=== PATIENT | male | born 1935 | race Caucasian/White ===

== ENCOUNTER 2017-12-01 16:09 | Observation (INO) | payer OTHER, MEDICARE ==
[~2017-12-01] VITALS: Ht 162.6 cm; Wt 77.1 kg
[~2017-12-01 16:09] MED LIST: ASPIRIN EC81 M1 PO; BENADRYL ALLERG25 M2 PO; BENICAR20 M1 PO; CO Q-10200 MG PO; COUMADIN2.5 M1 PO; DOCUSATE SODIU100 M3 PO; IRON SUPPLEMEN325 MG PO; LEVOTHYROXINE100 MC1 PO; MIRALAX119 GM PO; OMEGA-31000 M1 PO; PERCOCET 5-3251 EACH PO; SENNA PLUS TAB1 EACH PO; VITAMIN D32000 UNIT PO; ZOCOR40 M1 PO
[2017-12-01 17:04] LABS: ABSOLUTE BASOPHIL COUNT 0 /CUMM (0.0-0.2); ABSOLUTE EOSINOPHIL COUNT 0 /CUMM (0.0-0.7); ABSOLUTE GRANULOCYTE CT 14.7 /CUMM (1.4-6.5); ABSOLUTE MONOCYTE COUNT 1.1 /CUMM (0.10-0.60); BASOPHIL % 0.1 % (0.0-2.0); EOSINOPHIL % 0.2 % (0-5); GRANULOCYTE % 87.4 % (42.2-75.2); HEMATOCRIT 31.7 % (42-52); MEAN CORPUSCULAR HGB 29.6 PG (27.0-31.0); MEAN CORPUSCULAR HGB CONC 33.6 G/DL (33.0-37.0); MEAN CORPUSCULAR VOLUME 88.2 FL (80.0-94.0); MEAN PLATELET VOLUME 8.2 FL (7.4-10.4); PLATELET COUNT 305 /CUMM (130-400); RBC DISTRIBUTION WIDTH 13.7 % (11.5-14.5); RED BLOOD CELL CT 3.59 /CUMM (4.70-6.10); WHITE BLOOD CELL COUNT 16.9 /CUMM (4.8-10.8)
--- NOTE | 2017-12-01 18:20 | CT SCAN REPORT ---
EXAMINATION: CT ABDOMEN AND PELVIS WITHOUT CONTRAST CLINICAL INFORMATION: Periumbilical abdominal pain and anorexia. COMPARISON: Abdominal CT favored 2014. TECHNIQUE: Multidetector volumetric imaging was performed from the superior aspect of the liver through the pubic symphysis. Sagittal and coronal reformatted images were obtained on the technologist's workstation. FINDINGS: The lung bases are clear. There is stranding between the pancreatic head and second and third portions of the duodenum that may reflect pancreatitis or duodenitis which can be correlated with serum amylase/lipase. No drainable fluid collections and no free air. There are a few punctate calcifications throughout the pancreas. The spleen is atrophic. Unenhanced liver and gallbladder are unremarkable. The adrenal glands are unremarkable. There is nonspecific perinephric stranding bilaterally. There is a left renal cyst. No hydronephrosis. Extensive aortoiliac atherosclerotic calcification. There is no bowel obstruction. Appendix not definitively identified. The bladder is decompressed, appears partially thick-walled, and there is adjacent stranding. Recommend correlation with urinalysis to exclude infection. Alternatively this may be posttreatment related given the presence of prostatic therapy seeds. No pelvic adenopathy. No free fluid within the pelvis. There are no acute osseous abnormalities. Grade 1 degenerative anterolisthesis in the setting of advanced hypertrophic facet arthropathy at L4-L5. Additional multilevel lumbar spondylosis. Right hip prosthesis. Hypertrophic degenerative changes involving the SI joints bilaterally. Fat-containing left inguinal hernia. IMPRESSION: - There is stranding between the pancreatic head and second and third portions of the duodenum that may reflect pancreatitis or duodenitis which can be correlated with serum amylase/lipase. No drainable fluid collections and no free air. - The bladder is decompressed, appears partially thick-walled, and there is adjacent stranding. Recommend correlation with urinalysis to exclude infection. Alternatively this may be posttreatment related given the presence of prostatic therapy seeds.
--- NOTE | 2017-12-01 18:51 | ED GENERAL ADULT ---
History of Present Illness General Chief Complaint: General Adult Stated Complaint: PT WAS SIB DR JOHNSON Source: patient Exam Limitations: no limitations Vital Signs & Intake/Output Vital Signs & Intake/Output Vital Signs Date Time Temp Pulse Resp B/P B/P Pulse O2 O2 Flow FiO2 Mean Ox Delivery Rate 12/01 1751 98 Room Air 12/01 1750 97.1 96 18 122/57 99 Room Air 12/01 1709 97.8 68 20 144/67 96 Room Air 12/01 1616 97.7 98 16 100/63 96 Room Air Allergies Coded Allergies: NO KNOWN ALLERGIES (07/21/15) Triage Note: STARTED W A COUGH MONDAY, NOW ON MEDS AND HAS LESSER APPETITE WITH WEIGHT LOSS OF 6 POUNDS. INTERMITTENTLY DIZZY. REPORTS RIGHT SIDED MID- ABD PAIN WORSE WITH PALPATION 6/10 AND INTERMITTENT. LAST BM YESTERDAY AND NORMAL, DENIES BLACK OR BLOODY STOOLS. DENIES HEADACHE/BLURRED VISION OR CP/SOB/PALP. DENIES CHANGE IN SIZE OF ABDOMEN. AFEBRILE Triage Nurses Notes Reviewed? yes HPI: 82-year-old male with past medical history of hypertension, hyperlipidemia, status post thyroidectomy for thyroid cancer, vitamin D deficiency, history of hyperkalemia, chronic kidney disease presenting with increased fatigue and intermittent abdominal pain for 4 days. Patient states he went to his primary care physician on Monday for a cough and a chest x-ray was done showing possible pneumonia. Patient was started on Levaquin for 7 days and is currently taking it. He states his symptoms of cough and wheezing have improved although he started having intermittent abdominal pain, decreased appetite, and 6 pound weight loss in the last 4 days. He also reports intermittent dizziness. He states he is also experiencing fatigue noted when he has to rest after walking from one room of the house into another. He went back to his PCP this morning and was advised to come to ED for further workup. He denies any fevers, chills, chest pain, shortness of breath, diarrhea, urinary tract symptoms. Of Note: patient performs intermittent cath for 25 years three times a day. He reports decreased volumes for the past few days. (Christofer ZAMUDIO,Jackeline) Reconcile Medications Amlodipine Besylate 5 MG TABLET 1 TAB PO DAILY BP (Reported) Aspirin (Ecotrin*) 81 MG TABLET. 1 TAB PO DAILY HEART/BLOOD (Reported) Cholecalciferol (Vitamin D3) (Vitamin D3) 2,000 UNIT CAPSULE 1 CAP PO DAILY SUPPLEMENT (Reported) Levothyroxine Sodium 100 MCG TABLET 1 TAB PO DAILY THYROID (Reported) Losartan Potassium (Cozaar) 25 MG TABLET 1 TAB PO DAILY BP (Reported) Westland-3 Fatty Acids (Westland-3) (Unknown Strength) CAPSULE 2 CAP PO DAILY SUPPLEMENT (Reported) Omeprazole 40 MG CAPSULE.DR 1 CAP PO BID ACID REFLUX Rosuvastatin Calcium (Crestor) 20 MG TABLET 1 TAB PO DAILY CHOLESTEROL ( Reported) Ubidecarenone (Co Q-10) 200 MG CAPSULE 1 CAP PO DAILY SUPPLEMENT (Reported) (Marie ZAMUDIO,[facility]) Past History Travel History Traveled to [place] past 21 day No Medical History Any Pertinent Medical History? see below for history Neurological: NONE EENT: NONE Cardiovascular: hypertension, hyperlipidemia Respiratory: COPD, emphysema Gastrointestinal: NONE Hepatic: NONE Renal: SEES "YUMIKO" Musculoskeletal: degen joint disease Psychiatric: NONE Endocrine: NONE Blood Disorders: NONE Cancer(s): prostate cancer TIE IN HAND/Reproductive: STRAIGHT CATH 3 XDAY History of MRSA: No History of VRE: No History of CDIFF: No Surgical History Surgical History: appendectomy Psychosocial History Where do you live Home Who do you live with Family Services at Home None What is your primary language Montenegrin Tobacco Use: Quit >30 days ago ETOH Use: occasional use Illicit Drug Use: denies illicit drug use Family History Family History, If Any: Relation not specified for: FH: cancer Hx Contributory? No (Jackeline Beaulieu MD) Review of Systems Review of Systems Constitutional: Reports: weakness, unexplained weight loss. Denies: chills, diaphoresis, fever, malaise. EENTM: Reports: no symptoms. Respiratory: Reports: cough. Denies: hemoptysis, short of breath, sputum production. Cardiovascular: Reports: no symptoms. GI: Reports: abdominal pain. Denies: bloating, constipation, diarrhea, distention, melena, nausea, changes in stool, vomiting. Genitourinary: Reports: no symptoms. Musculoskeletal: Reports: no symptoms. Skin: Reports: no symptoms. Neurological/Psychological: Reports: no symptoms. (Jackeline Beaulieu MD) Physical Exam Physical Exam General Appearance: well developed/nourished, no apparent distress, alert, awake , comfortable Head: atraumatic, normal appearance Ears, Nose, Throat: sublingual yellowing Neck: normal inspection, supple Respiratory: coarse breath sounds scattered Cardiovascular: regular rate/rhythm Peripheral Pulses: 2+ radial (R), 2+ radial (L) Gastrointestinal: soft, tenderness (RUQ) Extremities: normal inspection Core Measures ACS in differential dx? No CVA/TIA Diagnosis: No Sepsis Present: Yes Sepsis Focused Exam Completed? Yes (Christofer ZAMUDIO,Jackeline) Progress Differential Diagnoses I considered the following diagnoses in my evaluation of the patient: [UTI, gastroenteritis, PNA, dehydration, acute on chronic kidney disease, sepsis] 82 year old male currently being treated for bronchitis vs PNA by PCP with Levaquin day 5/ presenting with worsening abdominal pain for 4 days. ED work up shows: Leukocytosis (WBC 16.9) Hyponatremia (132) Acute on Chronic Kidney Disease (Cr 4.0 previous 2.0) Dehydration (BUN/Cr 74/4.0) UTI (UA +WBC, leuk esterace) Possible Sepsis of Urologic Origin -BC x 2 -IV NS 1L bolus (will only administer this one liter given patient's age and recent CXR showing atelectasis; do not want to overwhelm his system with fluid. Lactate is normal at presentation) -One dose Ceftriaxone -Placement on General Medicine for observation -Contact Dr. Jules in AM regarding kidney issues -Follow up [facility] Plan of Care: Orders Procedure Date/time Status Heart Healthy Diet 12/02 B Active TROPONIN LEVEL 12/02 0600 Active PHOSPHORUS 12/02 0600 Active MAGNESIUM 12/02 0600 Active CBC WITHOUT DIFFERENTIAL 12/02 0600 Active BASIC ELECTROLYTES PLUS BUN&CR 12/02 0600 Active LACTIC ACID 12/01 1914 Active Pathway - chart 12/01 1904 Active LOWER RESPIRATORY CULTURE 12/01 1904 Active LACTIC ACID 12/[address] in observation 12/01 1858 Active ED Holding Orders 12/01 1858 Active Vital Signs 12/01 1858 Active Code Status 12/01 1858 Active BLOOD CULTURE 12/01 1806 Active CULTURE,URINE 12/01 1804 Active URINALYSIS 12/01 1615 Complete TROPONIN LEVEL 12/01 1614 Complete LIPASE 12/01 1614 Complete LACTIC ACID 12/01 1614 Complete COMPREHENSIVE METABOLIC PANEL 12/01 1614 Complete CBC WITHOUT DIFFERENTIAL 12/01 1614 Complete EKG 12/01 1614 Active VTE Mechanical Prophylaxis 12/01 UNK Active Vital Signs 12/01 UNK Active Intake & Output 12/01 UNK Active Current Medications Sig/Angel Start time Last Medication Dose Stop Time Status Admin Acetaminophen 1,000 MG Q6P PRN 12/01 1914 [facility] ([facility]) Laboratory Tests 12/01/17 1850: Lactic Acid Pending 12/01/17 1650: Anion Gap 14, Estimated GFR 14 L, BUN/Creatinine Ratio 18.5, Glucose 166 H, Lactic Acid 1.6, Calcium 9.3, Total Bilirubin 0.3, AST 25, ALT 22, Alkaline Phosphatase 51, Troponin I < 0.01, Total Protein 6.7, Albumin 3.8, Globulin 2.9, Albumin/Globulin Ratio 1.3, Lipase 345 H, CBC w Diff MAN DIFF ORDERED, RBC 3.59 L, MCV 88.2, MCH 29.6, MCHC 33.6, RDW 13.7, MPV 8.2, Gran % 87.4 H, Lymphocytes % 5.8 L, Monocytes % 6.5, Eosinophils % 0.2, Basophils % 0.1, Absolute Granulocytes 14.7 H, Segmented Neutrophils 88 H, Absolute Lymphocytes 1.0 L, Lymphocytes 6 L, Monocytes 6, Absolute Monocytes 1.1 H, Absolute Eosinophils 0, Absolute Basophils 0, Platelet Estimate ADEQUATE, Hypochromic- Microcytic 1+ 12/01/17 1644: Urinalysis MOD H, Urine Color YEL, Urine Clarity HAZY H, Urine pH 6.0, Ur Specific [place] 1.025, Urine Protein 100 H, Urine Ketones NEG, Urine Nitrite NEG, Urine Bilirubin NEG, Urine Urobilinogen 0.2, Ur Leukocyte Esterase SMALL H , Ur Microscopic SEDIMENT EXAMINED, Urine RBC 3-5, Urine WBC 25-50 H, Ur Epithelial Cells FEW, Urine Bacteria FEW H, Hyaline Casts 15-25 H, Granular Casts 3-5 H, Urine Hemoglobin SMALL H, Urine Glucose NEG Microbiology 12/02 1903 LOWER RESP: Respiratory Culture - ORD 12/02 1903 LOWER RESP: Gram Stain - ORD 12/01 185 BLOOD: Blood Culture - RECD 12/01 1824 BLOOD: Blood Culture - RECD 12/02 1803 URINE ROUT: Urine Culture - ORD Initial ED EKG: normal axis, none, normal intervals, normal p-waves, normal QRS complex, normal sinus rhythm (Jackeline Beaulieu MD) Differential Diagnoses I considered the following diagnoses in my evaluation of the patient: Comments: 12/01/171850 82-year-old male presents with abdominal pain. The patient was recently on antibiotics for bronchitis. The patient has had progressive abdominal pain. Abdominal exam shows right lower quadrant and right upper quadrant tenderness without peritoneal signs. The patient's workup shows UTI with worsening acute on chronic renal failure. Concern for sepsis. The patient will be started on IV antibiotics, fluids and admitted. The patient is not in severe sepsis, given his age we will not give him excessive amount of fluids because be risk CHF. The patient will be given 1 L of normal saline and then started on a drip. The patient has normal lactate, normal blood pressure. EKG: Sinus, rate of 89, normal axis, normal intervals, no acute ST-T changes. Compared to the EKG from May 14, 2009: No significant change. (Wan Salazar MD) Departure Departure Condition: Stable Referrals: Jeremy ZAMUDIO,Raj De Leon (PCP/Family) Departure Forms: Customer Survey General Discharge Information (Jackeline Beaulieu MD) Departure Time of Disposition: 1851 Disposition: STILL A PATIENT Clinical Impression Primary Impression: Sepsis Secondary Impressions: UTI (urinary tract infection) Admission Note Spoke With: Brendan Banda MD Documentation of Exam: Documentation of any treatments & extenuating circumstances including Concerns Regarding Discharge (functional status, medication knowledge or non-compliance, living conditions, etc.) that warrant an admission rather than observation: The patient will need fluids, IV antibiotics, possible nephrology consult, monitoring for CHF Psych Admission Note Psychiatric Admission: I have seen and evaluated JAYA GARCIA. I have also reviewed all the pertinent lab results and diagnostic results. JAYA GARCIA will be admitted to our inpatient Psychiatric unit for treatment and care. PA/CHRISTMAS TREE GROWER Co-Sign Statement Statement: ED Attending supervision documentation- [] I saw and evaluated the patient. I have also reviewed all the pertinent lab results and diagnostic results. I agree with the findings and the plan of care as documented in the PA's/CHRISTMAS TREE GROWER's documentation. [x] I have reviewed the ED Record and agree with the PA's/CHRISTMAS TREE GROWER's documentation. [] Additions or exceptions (if any) to the PAs/CHRISTMAS TREE GROWER's note and plan are summarized below: [] (Wan Salazar MD) Critical Care Note Critical Care Note Critical Care Time: non-applicable (Christofer ZAMUDIO,Jackeline)
[2017-12-01] MEDS ORDERED: AMLODIPINE BESYL5 M1 PO (19:01)
[2017-12-01] MEDS ORDERED: CRESTOR20 M2 PO (19:02)
[2017-12-01] MEDS ORDERED: COZAAR25 M1 PO (19:02)
--- NOTE | 2017-12-01 19:02 | History & Physical ---
Baldo ZAMUDIO,Lety 12/01/17 1900: General Information and HPI Statement: I have seen and personally examined JAYA GARCIA and documented this H&P. The patient is a 82 year old M who presented with a patient stated chief complaint of []. Source of Information: patient, old records, EMS Exam Limitations: no limitations History of Present Illness: Patient is 82-year-old male with past mental history significant for prostate cancer, CKD, neurogenic bladder on self straight cath 3 times a day, trabeculated bladder, hypertension, hyperlipidemia, COPD, emphysema, DJD s/p hip arthroplasty presented to [place] after being sent by Dr. Luna for progressive worsening of right-sided abdominal pain. Patient did have pneumonia last week and has been kept on levofloxacin and steroid taper. He reports his infection got better for the past few days however was started noticing significant abdominal pain since witnessed a associated with decreased appetite f/b poor per oral intake. Patient reports decrease in urination and he attributes it to decrease fluid intake. He denies any burning/pain with urination. He also reports lightheadedness and weakness for the past few days but denies any syncopal episodes. Review of systems completely negative other than above. Patient reports very good compliance with his medications. 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 Home Services at Home: None ETOH Use: occasional use Illicit Drug Use: denies illicit drug use Functional Ability ADLs Independent: dressing, eating, toileting, bathing. Ambulation: independent IADLs Needs Assist: shopping, housework, finances, food prep, telephone, transportation, medication admin. Review of Systems Review of Systems Constitutional: Reports: see HPI. Exam & Diagnostic Data Last 24 Hrs of Vital Signs/I&O Vital Signs Date Time Temp Pulse Resp B/P B/P Pulse O2 O2 Flow FiO2 Mean Ox Delivery Rate 12/01 1751 98 Room Air 12/01 1750 97.1 96 18 122/57 99 Room Air 12/01 1709 97.8 68 20 144/67 96 Room Air 12/01 1616 97.7 98 16 100/63 96 Room Air Physical Exam General Appearance Alert, Oriented X3, Cooperative Skin No Rashes, No Breakdown Skin Temp/Moisture Exam: Warm/Dry HEENT Atraumatic, PERRLA, EOMI Neck Supple, No JVD Cardiovascular Normal S1, Normal S2, No Murmurs Lungs Clear to Auscultation, Normal Air Movement, decreased breath sounds at right lung base Abdomen Normal Bowel Sounds, Soft, tenderness - right-sided abdomen Neurological Normal Gait, Normal Speech, Strength at 5/5 X4 Ext, Normal Tone Extremities No Clubbing, No Cyanosis, 1-2+ pitting edema Vascular Normal Pulses Last 24 Hrs of Labs/Herbert: Laboratory Tests 12/01/17 1904: Lactic Acid Cancelled 12/01/17 1850: Lactic Acid 0.9 12/01/17 1650: Anion Gap 14, Estimated GFR 14 L, BUN/Creatinine Ratio 18.5, Glucose 166 H, Lactic Acid 1.6, Calcium 9.3, Total Bilirubin 0.3, AST 25, ALT 22, Alkaline Phosphatase 51, Troponin I < 0.01, Total Protein 6.7, Albumin 3.8, Globulin 2.9, Albumin/Globulin Ratio 1.3, Amylase 88, Lipase 345 H, CBC w Diff MAN DIFF ORDERED, RBC 3.59 L, MCV 88.2, MCH 29.6, MCHC 33.6, RDW 13.7, MPV 8.2, Gran % 87.4 H, Lymphocytes % 5.8 L, Monocytes % 6.5, Eosinophils % 0.2, Basophils % 0.1, Absolute Granulocytes 14.7 H, Segmented Neutrophils 88 H, Absolute Lymphocytes 1.0 L, Lymphocytes 6 L, Monocytes 6, Absolute Monocytes 1.1 H, Absolute Eosinophils 0, Absolute Basophils 0, Platelet Estimate ADEQUATE, Hypochromic-Microcytic 1+ 12/01/17 1644: Urinalysis MOD H, Urine Color YEL, Urine Clarity HAZY H, Urine pH 6.0, Ur Specific [place] 1.025, Urine Protein 100 H, Urine Ketones NEG, Urine Nitrite NEG, Urine Bilirubin NEG, Urine Urobilinogen 0.2, Ur Leukocyte Esterase SMALL H , Ur Microscopic SEDIMENT EXAMINED, Urine RBC 3-5, Urine WBC 25-50 H, Ur Epithelial Cells FEW, Urine Bacteria FEW H, Hyaline Casts 15-25 H, Granular Casts 3-5 H, Urine Hemoglobin SMALL H, Urine Glucose NEG Microbiology 12/02 1903 LOWER RESP: Respiratory Culture - COLB 12/02 1903 LOWER RESP: Gram Stain - COLB 12/01 1850 BLOOD: Blood Culture - RECD 12/01 1825 BLOOD: Blood Culture - RECD 12/01 1644 URINE ROUT: Urine Culture - RECD Diagnostic Data EKG Results Normal sinus rhythm Assessment/Plan Assessment: Patient is 82-year-old male with past history significant for prostate cancer, neurogenic bladder requiring straight cath 3 times a day, COPD/emphysema presented to [place] after being sent by his PCP due to concern of progressive worsening right sided abdominal pain, poor appetite, decreased urination. Patient sustained recent pneumonia for which he is still on antibiotic course and steroid taper. He did have lightheadedness and fatigue. Vital signs at presentation are afebrile, blood pressure 100/60 mmHg, heart rate 98. Labs to 2 white count of 16.9, H&H 10/31, left shift. Chem panel sodium 132, BUN/ creatinine 74/4, lipase 345. LFT's are unremarkable. UA is hazy with 25-50 white count, hyaline casts and granular casts. CT abdomen and pelvis did show stranding between pancreatic head, second and third portions of duodenum. Bladder appears partially thickened with adjacent stranding. Differential 1. UTI leading to sepsis - white count with left shift, LAXMI on CKD, positive UA. 2. Duodenitis - RUQ pain, burning nature, elevated lipase. Imaging findings are consistent. I do not consider pancreatitis. Plan Place in observation in general medicine floor Complicated UTI Patient had long time history of neurogenic bladder with straight catheterization. He does have Prostate cancer f/b TURP, persistently elevated PSA requiring hormonal therapy/other supportive therapies. UA positive, decreased PO intake, abdominal pain. * IV ceftriaxone and metronidazole * Narrow antibiotics per culture * Renal ultrasound for stones/progression of CKD * IV hydration with NS @ 75ml/hr * Daily BEP, CBC Duodenitis Needs further evaluation * IV PPI * GI consult LAXMI on CKD Likely due to infection. Needs to rule out obstruction * IV hydration * Check BEP daily * Renal ultrasound to rule out progression of CKD/stones * Renal consult HTN: Continue amlodipine 5mg daily, losartan 25mg daily, ASA 81mg daily HLD: continue Crestor 20mg daily DVT prophylaxis SC heparin Code status Full code As Ranked By This Provider Problem List: 1. history of neurogenic bladder 2. Sepsis 3. UTI (urinary tract infection) Core Measures/Misc (12/04) Acute Coronary Syndrome ACS Diagnosis: No Congestive Heart Failure Congestive Heart Failure Diagnosis No Cerebrovascular Accident CVA/TIA Diagnosis: No VTE (View Protocol) VTE Risk Factors Acute Medical Illness No Mechanical VTE Prophylaxis d/t N/A MechProphylax Ordered No VTE Pharm Prophylaxis d/t NA PharmProphylax ordered Sepsis (View protocol) Sepsis Present: Yes If YES complete Sepsis Event Note If YES complete Sepsis Event Note Resident Review Statement Resident Statement: examined this patient, discussed with internet programmer, agreed with internet programmer, discussed with family, reviewed EMR data (avail), discussed with nursing , discussed with case mgmt, reviewed images, amended to note Other Findings: as above Solo ZAMUDIO,Winters 12/02/17 0536: General Information and HPI MD Statement: I have seen and personally examined RADHAJAYA John and documented this H&P. The patient is a 82 year old M who presented with a patient stated chief complaint of []. Source of Information: patient, old records, EMS Allergies/Medications Home Med list Amlodipine Besylate 5 MG TABLET 1 TAB PO DAILY BP (Reported) Aspirin (Ecotrin*) 81 MG TABLET.DR 1 TAB PO DAILY HEART/BLOOD (Reported) Cholecalciferol (Vitamin D3) (Vitamin D3) 2,000 UNIT CAPSULE 1 CAP PO DAILY SUPPLEMENT (Reported) Levofloxacin (Levaquin) 500 MG TABLET 1 TAB PO DAILY ABX (Reported) Levothyroxine Sodium 100 MCG TABLET 1 TAB PO DAILY THYROID (Reported) Losartan Potassium (Cozaar) 25 MG TABLET 1 TAB PO DAILY BP (Reported) Methylprednisolone. (Medrol) 4 MG TAB.DS.PK 1 DP PO AD STEROID (Reported) 6 on day 1 then reduce by one tablet daily until gone Ocate-3 Fatty Acids (Ocate-3) (Unknown Strength) CAPSULE 2 CAP PO DAILY SUPPLEMENT (Reported) Rosuvastatin Calcium (Crestor) 20 MG TABLET 1 TAB PO DAILY CHOLESTEROL ( Reported) Ubidecarenone (Co Q-10) 200 MG CAPSULE 1 CAP PO DAILY SUPPLEMENT (Reported) Past History Medical History Cardiovascular: hypertension, hyperlipidemia Respiratory: COPD, emphysema Past Family/Social History Psychosocial History Smoking Status: Never Smoked ETOH Use: occasional use Review of Systems Review of Systems Constitutional: Reports: see HPI. Exam & Diagnostic Data Last 24 Hrs of Vital Signs/I&O Vital Signs Date Time Temp Pulse Resp B/P B/P Pulse O2 O2 Flow FiO2 Mean Ox Delivery Rate 12/01 2212 97.5 85 18 113/55 95 Room Air 12/01 2134 98.8 94 18 118/61 95 Room Air 12/01 2008 97.5 97 20 136/65 96 Room Air 12/01 2000 96 Room Air 12/01 1751 98 Room Air 12/01 1750 97.1 96 18 122/57 99 Room Air 12/01 1709 97.8 68 20 144/67 96 Room Air 12/01 1616 97.7 98 16 100/63 96 Room Air Intake & Output 12/02 0800 12/02 0000 12/01 1600 Intake Total Output Total Balance Patient 170 lb Weight Weight Bed scale Measurement Method Core Measures/Misc (12/04) Sepsis (View protocol) If YES complete Sepsis Event Note If YES complete Sepsis Event Note Attending MD Review Statement Attending Statement Attending MD Statement: examined this patient, discuss w/resident/PA/WEBMETHODS CONSULTANT, agreed w/resident/PA/WEBMETHODS CONSULTANT, discussed with family, reviewed EMR data (avail), discussed with nursing, discussed with case mgmt, amended to note Attending Assessment/Plan: This patient is an 82-year-old white male with a significant past medical history for prostate cancer, CKD, neurogenic bladder (straight cath 3 times a day), hypertension, hyperlipidemia, COPD, emphysema, DJD s/p hip arthroplasty presented to [facility] after being sent by Dr. Luna for progressive worsening of right-sided abdominal pain. He started noticing significant abdominal pain since witnessed associated with decreased appetite f/b poor per oral intake. Patient reports decrease in urination and he attributes it to decrease fluid intake. The patient was evaluated in the emergency department was found to be afebrile with stable vital signs, his white blood cell count was significantly elevated at 16.9, slightly anemic at 10.6, his UA is positive, slightly hyponatremic at 132, BUN 74, creatinine 4.0 (double his baseline), initial lactic acid 1.6 follow-up 0.9, isolated elevation in his lipase at 345, microbiology pending, CT scan abdomen and pelvis - There is stranding between the pancreatic head and second and third portions of the duodenum that may reflect pancreatitis or duodenitis which can be correlated with serum amylase/lipase. No drainable fluid collections and no free air. - The bladder is decompressed, appears partially thick-walled, and there is adjacent stranding. Recommend correlation with urinalysis to exclude infection. Alternatively this may be posttreatment related given the presence of prostatic therapy seeds. The patient will be placed on observation for possible sepsis of urologic origin. IV ceftriaxone and metronidazole, IV PPI, Renal ultrasound for stones/progression of CKD, IV hydration, if he doesnt improve may need GI input. Full code
--- NOTE | 2017-12-01 19:02 | Sepsis Event Note ---
Sepsis Event Note Severe Sepsis Severe Sepsis Present: No Septic Shock Septic Shock Present: No Event Note Event Note: Patient is a 82-year-old male with past history significant for prostate cancer, neurogenic bladder requiring straight cath 3 times a day, COPD/emphysema presented to [place] after being sent by his PCP due to concern of progressive worsening right sided abdominal pain, poor appetite, decreased urination. Patient had long time history of neurogenic bladder with straight catheterization. He does have Prostate cancer f/b TURP, persistently elevated PSA requiring hormonal therapy/other supportive therapies. UA positive, decreased PO intake, abdominal pain. We will admit for sepsis of urological origin and treat with IV fluids, IV abx. Lactic acid is negative. Sepsis Focused Exam Sepsis Cardiac Exam: Regular Rate/Rhythm Sepsis Resp Exam: CTA Sepsis Cap Refill Exam: <2 Sec Sepsis Peripheral Pulse Exam: Normal Sepsis Peripheral Pulse Location: Dorsalis Pedis Sepsis Skin Exam (color): Normal for Ethnicity Skin Temp/Moisture Exam: Warm/Dry
[2017-12-01] MEDS ORDERED: LEVAQUIN500 M1 PO (19:04)
[2017-12-01] MEDS ORDERED: MEDROL4 M2 PO (19:04)
--- NOTE | 2017-12-01 20:39 | RADIOLOGY REPORT ---
XR CHEST CLINICAL INFORMATION: Follow-up pneumonia. COMPARISON: Chest x-ray 11/27/2017. TECHNIQUE: 2 views of the chest were obtained. FINDINGS: There is symmetric lung inflation. Previously seen bibasilar opacities have improved, particularly at the right lung base. No new airspace opacities. No pleural effusions and no pneumothoraces. Cardiac silhouette size is normal. There are no acute osseous findings. Thoracic spondylosis. IMPRESSION: Previously seen bibasilar opacities have improved, particularly at the right lung base. No new airspace opacities.
[2017-12-01 22:12] VITALS: BP 113/55
--- NOTE | 2017-12-02 02:35 | PN- Housestaff ---
See Addendum Subjective Follow-up For: sepsis of urological origin Duodenitis LAXMI on CKD Subjective: Patient is very active, in good spirits. He feels much improved, although still had mild abdominal pain. Per patient repeat UA apparently much clear than yesterday. Review of Systems Constitutional: Reports: see HPI. Objective Last 24 Hrs of Vital Signs/I&O Vital Signs Date Time Temp Pulse Resp B/P B/P Pulse O2 O2 Flow FiO2 Mean Ox Delivery Rate 12/02 2211 97.5 85 18 113/55 95 Room Air 12/01 2134 98.8 94 18 118/61 95 Room Air 12/01 2008 97.5 97 20 136/65 96 Room Air 12/02 1999 96 Room Air 12/01 1751 98 Room Air 12/01 1750 97.1 96 18 122/57 99 Room Air 12/01 1709 97.8 68 20 144/67 96 Room Air 12/01 1616 97.7 98 16 100/63 96 Room Air Intake & Output 12/02 0800 12/02 0000 12/01 1600 Intake Total Output Total Balance Patient 77.111 kg Weight Weight Bed scale Measurement Method Physical Exam General Appearance: Alert, Oriented X3, Cooperative, No Acute Distress Skin: No Rashes, No Breakdown Skin Temp/Moisture Exam: Warm/Dry HEENT: Atraumatic, PERRLA, EOMI Neck: Supple, No JVD Cardiovascular: Regular Rate, Normal S1, Normal S2 Lungs: Clear to Auscultation, Normal Air Movement Abdomen: Normal Bowel Sounds, Soft, tenderness in the epigastric and right upper quadrant region Current Medications: Current Medications Sig/Angel Start time Last Medication Dose Route Stop Time Status Admin Acetaminophen 1,000 MG Q6P PRN 12/01 1914 AC IV Amlodipine Besylate 5 MG DAILY 12/02 899 AC 12/02 PO 0755 Aspirin Buffered 81 MG DAILY 12/02 899 AC 12/02 PO 0755 Atorvastatin Calcium 80 MG 1700 12/02 1700 AC PO Ceftriaxone Sodium 1,000 MG DAILY 12/02 899 AC 12/02 IV 0756 Ceftriaxone Sodium 0 .STK-MED ONE 12/01 1841 DC .ROUTE Ceftriaxone Sodium 1,000 MG ONCE ONE 12/01 181 DC 12/01 IV 12/01 181 1905 Cholecalciferol 2,000 IU DAILY 12/02 899 AC 12/02 PO 0754 Fish Oil 1,050 MG DAILY 12/02 0900 AC 12/02 PO 0753 Levothyroxine Sodium 0.1 MG DAILY AC 12/02 0700 AC 12/02 PO 0558 Losartan Potassium 25 MG DAILY 12/02 09 AC 12/02 PO 0756 Metronidazole 500 MG ONCE ONE 12/02 0600 DC 12/02 N/A 1 UNIT IV 12/02 0659 0556 Pantoprazole Sodium 0 .STK-MED ONE 12/01 2033 DC IV Pantoprazole Sodium 40 MG DAILY 12/01 1952 AC 12/02 IV 0756 Sodium Chloride 1,000 ML Q10H 12/02 0945 AC IV Sodium Chloride 1,000 ML Q13H 12/02 0345 AC 12/02 IV 12/02 1644 0406 Sodium Chloride 1,000 ML BOLUS ONE 12/01 1800 DC 12/01 IV 12/01 1859 1805 Last 24 Hrs of Lab/Herbert Results Last 24 Hrs of Labs/Mics: Laboratory Tests 12/02/17 0705: Anion Gap 9, Estimated GFR 17 L, BUN/Creatinine Ratio 21.2, Phosphorus 4.1, Magnesium 2.3, Troponin I < 0.01, CBC w Diff NO MAN DIFF REQ, RBC 2.93 L, MCV 89.2, MCH 29.9, MCHC 33.5, RDW 13.6, MPV 8.3, Gran % 78.6 H, Lymphocytes % 10.5 L, Monocytes % 9.9 H, Eosinophils % 0.7, Basophils % 0.3, Absolute Granulocytes 8.8 H, Absolute Lymphocytes 1.2, Absolute Monocytes 1.1 H, Absolute Eosinophils 0.1, Absolute Basophils 0 12/01/17 1904: Lactic Acid Cancelled 12/01/17 1850: Lactic Acid 0.9 12/01/17 1650: Anion Gap 14, Estimated GFR 14 L, BUN/Creatinine Ratio 18.5, Glucose 166 H, Serum Osmolality 309 H, Lactic Acid 1.6, Calcium 9.3, Total Bilirubin 0.3, AST 25, ALT 22, Alkaline Phosphatase 51, Troponin I < 0.01, Total Protein 6.7, Albumin 3.8, Globulin 2.9, Albumin/Globulin Ratio 1.3, Amylase 88, Lipase 345 H , CBC w Diff MAN DIFF ORDERED, RBC 3.59 L, MCV 88.2, MCH 29.6, MCHC 33.6, RDW 13.7, MPV 8.2, Gran % 87.4 H, Lymphocytes % 5.8 L, Monocytes % 6.5, Eosinophils % 0.2, Basophils % 0.1, Absolute Granulocytes 14.7 H, Segmented Neutrophils 88 H, Absolute Lymphocytes 1.0 L, Lymphocytes 6 L, Monocytes 6, Absolute Monocytes 1.1 H, Absolute Eosinophils 0, Absolute Basophils 0, Platelet Estimate ADEQUATE, Hypochromic-Microcytic 1+ 12/01/17 1644: Urinalysis MOD H, Urine Color YEL, Urine Clarity HAZY H, Urine pH 6.0, Ur Specific [place] 1.025, Urine Protein 100 H, Urine Ketones NEG, Urine Nitrite NEG, Urine Bilirubin NEG, Urine Urobilinogen 0.2, Ur Leukocyte Esterase SMALL H , Ur Microscopic SEDIMENT EXAMINED, Urine RBC 3-5, Urine WBC 25-50 H, Ur Epithelial Cells FEW, Urine Bacteria FEW H, Hyaline Casts 15-25 H, Granular Casts 3-5 H, Urine Hemoglobin SMALL H, Urine Glucose NEG 12/01/17 1615: Urine Osmolality 363 Microbiology 12/01 1904 LOWER RESP: Respiratory Culture - COLB 12/01 1904 LOWER RESP: Gram Stain - COLB 12/01 1850 BLOOD: Blood Culture - RECD 12/01 1825 BLOOD: Blood Culture - RECD 12/01 1644 URINE ROUT: Urine Culture - RECD Assessment/Plan Assessment: Patient is 82-year-old male with past history significant for prostate cancer, neurogenic bladder requiring straight cath 3 times a day, COPD/emphysema presented to [place] after being sent by his PCP due to concern of progressive worsening right sided abdominal pain, poor appetite, decreased urination. Patient sustained recent pneumonia for which he is still on antibiotic course and steroid taper. He did have lightheadedness and fatigue. Vital signs at presentation are afebrile, blood pressure 100/60 mmHg, heart rate 98. Labs to 2 white count of 16.9, H&H 10/31, left shift. Chem panel sodium 132, BUN/ creatinine 74/4, lipase 345. LFT's are unremarkable. UA is hazy with 25-50 white count, hyaline casts and granular casts. CT abdomen and pelvis did show stranding between pancreatic head, second and third portions of duodenum. Bladder appears partially thickened with adjacent stranding. Plan Admit to general medicine floor Sepsis of urological origin Patient had long time history of neurogenic bladder with straight catheterization. He does have Prostate cancer f/b TURP, persistently elevated PSA requiring hormonal therapy/other supportive therapies. UA positive, decreased PO intake, abdominal pain. * IV ceftriaxone daily * follow up urine cultures and narrow antibiotics for a total of 14 days * Renal ultrasound for stones/progression of CKD * Improving with hydration and abx. Duodenitis Needs further evaluation * IV PPI * Probable ulcer related pain LAXMI on CKD Likely due to infection. Needs to rule out obstruction * IV hydration * Cr improved from 4 to 3.4 * Renal ultrasound to rule out progression of CKD/stones HTN: Continue amlodipine 5mg daily, losartan 25mg daily, ASA 81mg daily HLD: continue Crestor 20mg daily DVT prophylaxis SC heparin Code status Full code Problem List: 1. history of neurogenic bladder 2. history of hypertension 3. Sepsis 4. UTI (urinary tract infection) Pain Ratin Pain Location: abdomen Pain Goal: Pain 4 or less Pain Plan: tylenol Tomorrow's Labs & Rationales: cbc bep
[2017-12-02 07:38] VITALS: BP 107/77
[2017-12-02 08:19] LABS: ABSOLUTE BASOPHIL COUNT 0 /CUMM (0.0-0.2); ABSOLUTE EOSINOPHIL COUNT 0.1 /CUMM (0.0-0.7); ABSOLUTE GRANULOCYTE CT 8.8 /CUMM (1.4-6.5); ABSOLUTE LYMPH COUNT 1.2 /CUMM (1.2-3.4); ABSOLUTE MONOCYTE COUNT 1.1 /CUMM (0.10-0.60); BASOPHIL % 0.3 % (0.0-2.0); EOSINOPHIL % 0.7 % (0-5); GRANULOCYTE % 78.6 % (42.2-75.2); MEAN CORPUSCULAR HGB 29.9 PG (27.0-31.0); MEAN CORPUSCULAR HGB CONC 33.5 G/DL (33.0-37.0); MEAN CORPUSCULAR VOLUME 89.2 FL (80.0-94.0); MEAN PLATELET VOLUME 8.3 FL (7.4-10.4); PLATELET COUNT 239 /CUMM (130-400); RBC DISTRIBUTION WIDTH 13.6 % (11.5-14.5); RED BLOOD CELL CT 2.93 /CUMM (4.70-6.10); WHITE BLOOD CELL COUNT 11.2 /CUMM (4.8-10.8)
[2017-12-02 09:12] LABS: HEMATOCRIT 26.2 % (42-52)
--- NOTE | 2017-12-02 13:41 | ULTRASOUND REPORT ---
EXAMINATION: US RETROPERITONEAL COMPLETE (RENAL) CLINICAL INFORMATION: Dehydration and sepsis. Acute renal insufficiency on chronic renal disease.. COMPARISON: CT abdomen and pelvis, 05/05/2014 and 12/01/2017. TECHNIQUE: Real-time imaging of the kidneys and bladder. FINDINGS: RIGHT KIDNEY: 9.2 x 4.8 x 4 cm (SAG x AP x TRV). The kidney has normal cortical thickness. No nephrolithiasis or hydronephrosis. The cortex is diffusely hyperechoic, as may be seen in medical renal disease. A 0.7 x 0.8 x 0.9 cm hypoechoic cortical lesion in the interpolar area appears to have internal echoes. This lesion is difficult to characterize. It could represent a cyst containing debris or a small, solid mass. A simple cyst of the lower pole measures up to 1.3 cm. LEFT KIDNEY: 9.9 x 5.2 x 4.5 cm cm (SAG x AP x TRV). The cortex is diffusely hyperechoic. No nephrolithiasis or hydronephrosis. 2.6 x 1.6 x 2.2 cm simple cyst of the upper pole. A simple cyst in the interpolar region measures up to 2.1 cm. BLADDER: Urinary bladder is distended to an estimated volume of 374 mL. No bladder mass or calculi. A left ureteral jet was not identified during the time of imaging. IMPRESSION: 1. No evidence of nephrolithiasis or hydronephrosis. 2. Kidneys are hyperechoic, bilaterally, consistent with medical renal disease. 3. Simple cysts of both kidneys. Also, there is a small, 0.9 cm hypoechoic cortical lesion of the right kidney. This lesion is difficult to characterize. It cannot be characterized on the recent noncontrast CT images of 12/01/2017. If deemed clinically appropriate, obtain renal ultrasound follow-up in 6-12 months to ensure stability of this indeterminate lesion.
[2017-12-02 14:30] VITALS: BP 121/69
[2017-12-02 22:05] VITALS: BP 115/56
[2017-12-03 06:26] VITALS: BP 136/66
--- NOTE | 2017-12-03 08:35 | PN- Housestaff ---
Amber Garciai 12/03/17 0835: Subjective Follow-up For: Sepsis of urological origin LAXMI on CKD Duodenitis Subjective: Patient was seen and examined at bedside. He does not have any symptoms at this time. The patient has some responsibilitis to attend to and would like to be discharged today. Will follow GI recommendations and give the patient outpatient GI referral. Review of Systems Constitutional: Reports: see HPI. Objective Last 24 Hrs of Vital Signs/I&O Vital Signs Date Time Temp Pulse Resp B/P B/P Pulse O2 O2 Flow FiO2 Mean Ox Delivery Rate 12/03 0859 106 136/66 12/03 0855 106 136/66 12/03 0700 93 Nasal 2.0L Cannula 12/03 0626 98.7 100 20 136/66 12/03 0000 Room Air 12/02 2334 Room Air Room Air 12/02 2205 98.3 87 18 115/56 91 Room Air 12/02 1430 98.5 92 18 121/69 96 Room Air Intake & Output 12/03 1600 12/03 0800 12/03 0000 Intake Total 800 300 Output Total 750 700 Balance 50 -400 Intake, IV 800 300 Output, Urine 750 700 Physical Exam General Appearance: Alert, Oriented X3, Cooperative, No Acute Distress Neck: Supple Cardiovascular: Regular Rate, Normal S1, Normal S2 Lungs: Clear to Auscultation, Normal Air Movement Abdomen: Normal Bowel Sounds, Soft, No Tenderness Extremities: No Edema, Normal Pulses Assessment/Plan Assessment: Patient is 82-year-old male with past history significant for prostate cancer, neurogenic bladder requiring straight cath 3 times a day, COPD/emphysema is admitted to the Gen Med service for concerns concern of progressive worsening right sided abdominal pain, poor appetite, decreased urination. Patient sustained recent pneumonia for which he is still on antibiotic course and steroid taper. 1. Sepsis of urological origin -Patient had long time history of neurogenic bladder with straight catheterization. He does have Prostate cancer f/b TURP, persistently elevated PSA requiring hormonal therapy/other supportive therapies. UA positive, decreased PO intake, abdominal pain. -IV ceftriaxone. Would change to PO antibiotics at discharge to complete a 14 day course of antibiotics for complicated UTI -Urine and blood cultures sterile - Renal ultrasound unrevealing for acute renal process - Patient improving with hydration and abx. 2.Duodenitis -Patient is on iv Protonix -GI consult placed. Will follow recommendations 3.LAXMI on CKD -No obstruction -Renal ultrasound unrevealing of an acute process -Creatinine improved to 2.5 today HTN: Continue amlodipine 5mg daily, losartan 25mg daily, ASA 81mg daily HLD: continue Crestor 20mg daily DVT prophylaxis SC heparin Code status Full code Problem List: 1. UTI (urinary tract infection) 2. Sepsis 3. s/p prostate cancer 4. s/p left hemithyroidectomy 5. left thyroid nodule 6. history of neurogenic bladder Pain Ratin Pain Location: epigastric region Pain Goal: Remain pain free Pain Plan: none Tomorrow's Labs & Rationales: none Marizol Cormier 12/03/17 1258: Attending MD Review Statement Attending Statement Attending MD Statement: examined this patient, discuss w/resident/PA/WINDER FIXER, agreed w/resident/PA/WINDER FIXER, discussed with family, reviewed EMR data (avail), discussed with nursing, discussed with case mgmt, reviewed images, amended to note Attending Assessment/Plan: 82 o/m denies any complaints and tolerating his breakfast and dinner without issues. CT scan findings alongwith elevated lipase are suspicious of pancreatitis and duodenitis. His LAXMI on CKD is improving with fluids and hydration with possiblity of UTI. Overall his clinical condition has improved with resolution in LAXMI. His leukocytosis has resolved. Renal USG noted with no acute pathology. Avoid nephrotoxic medications. GI i/p vs o/p. Medically stable for discharge. gi/dvt prophyalxis
[2017-12-03 09:44] LABS: ABSOLUTE BASOPHIL COUNT 0 /CUMM (0.0-0.2); ABSOLUTE EOSINOPHIL COUNT 0.2 /CUMM (0.0-0.7); ABSOLUTE LYMPH COUNT 1.2 /CUMM (1.2-3.4); ABSOLUTE MONOCYTE COUNT 1.1 /CUMM (0.10-0.60); BASOPHIL % 0.2 % (0.0-2.0); EOSINOPHIL % 1.8 % (0-5); HEMATOCRIT 25.3 % (42-52); MEAN CORPUSCULAR HGB 29.8 PG (27.0-31.0); MEAN CORPUSCULAR VOLUME 90.1 FL (80.0-94.0); MEAN PLATELET VOLUME 8.1 FL (7.4-10.4); PLATELET COUNT 239 /CUMM (130-400); RBC DISTRIBUTION WIDTH 13.5 % (11.5-14.5); RED BLOOD CELL CT 2.81 /CUMM (4.70-6.10); WHITE BLOOD CELL COUNT 10.5 /CUMM (4.8-10.8)
--- NOTE | 2017-12-03 13:58 | Patient Discharge Instructions ---
Discharge Instructions General Discharge Information You were seen/treated for: UTI Duodenitis LAXMI Special Instructions: 1. Please follow up with your PCP within a week of discharge 2 Please establish care with Dr. Clark for your abdominal pain 3. Please take the new medicines as pescribed Diet Continue normal diet: Yes Activity Activity Self Limited: Yes Acute Coronary Syndrome Inclusion Criteria At DC or during hospital stay patient has or had the following: ACS DIAGNOSIS No Discharge Core Measures Meds if any: Prescribed or Continued at Discharge Meds if any: NOT Prescribed or Continued at Discharge Congestive Heart Failure Inclusion Criteria At DC or during hospital stay patient has or had the following: CHF DIAGNOSIS No Discharge Core Measures Meds if any: Prescribed or Continued at Discharge Meds if any: NOT Prescribed or Continued at Discharge Cerebrovascular accident Inclusion Criteria At DC or during hospital stay patient has or had the following: CVA/TIA Diagnosis No Discharge Core Measures Meds if any: Prescribed or Continued at Discharge Meds if any: NOT Prescribed or Continued at Discharge Venous thromboembolism Inclusion Criteria VTE Diagnosis No VTE Type NONE VTE Confirmed by (Test) NONE Discharge Core Measures - Per Current guidelines, there needs to be overlap - treatment for the first 5 days of Warfarin therapy. - If discharged on Warfarin prior to 5 days of - overlap therapy, the patient will need to be - assessed for post discharge needs including - *Post discharge parental anticoagulation - *Warfarin and/or parental anticoagulation education - *Follow up date to check INR post discharge At least 5 days overlap therapy as Inpatient No Meds if any: Prescribed or Continued at Discharge Note: Overlap Therapy is Warfarin and Anticoagulant Meds if any: NOT Prescribed or Continued at Discharge
[2017-12-03] MEDS ORDERED: KEFLEX500 M1 PO ×2 (13:59→14:08)
--- NOTE | 2017-12-03 14:08 | Cons- Gastroenterology ---
General Information and HPI Consulting Request Date of Consult: 12/03/17 Requested By: Marizol Cormier MD Reason for Consult: Abdominal pain, abnormal CT scan History of Present Illness: 82-year-old male without usual GI symptoms, including no heartburn, dyspepsia, abdominal pain, change in bowel habits or evident GI bleeding. About one week prior to presentation the patient developed respiratory symptoms, and saw his PCP who diagnosed a possible pneumonia. He was started on antibiotics and a "med pack", but he had progressive weakness and decreased oral intake. He soon developed a burning sensation in his upper abdomen, which was helped with Gaviscon. Nevertheless he was sent to the emergency room by his PCP for admission because of progressive symptoms including stomach pain, and tenderness on examination. At this time the patient's burning is gone, he is eating better , has no pain. He denies nausea, vomiting, fever. There's been no diarrhea, melena, blood per rectum. The patient takes a low-dose aspirin daily, but no NSAIDs. There is no history of peptic ulcer disease, liver disease, or biliary sludge gallstone disease. There is no history of pancreatitis. Family history is negative for peptic ulcer disease, GI malignancy, pancreatitis/pancreatic cancer. Allergies/Medications Allergies: Coded Allergies: NO KNOWN ALLERGIES (07/21/15) Home Med List: Amlodipine Besylate 5 MG TABLET 1 TAB PO DAILY BP (Reported) Cholecalciferol (Vitamin D3) (Vitamin D3) 2,000 UNIT CAPSULE 1 CAP PO DAILY SUPPLEMENT (Reported) Levothyroxine Sodium 100 MCG TABLET 1 TAB PO DAILY THYROID (Reported) Losartan Potassium (Cozaar) 25 MG TABLET 1 TAB PO DAILY BP (Reported) [place]-3 Fatty Acids ([place]-3) (Unknown Strength) CAPSULE 2 CAP PO DAILY SUPPLEMENT (Reported) Omeprazole 40 MG CAPSULE.DR 1 CAP PO BID ACID REFLUX take 1 pill 2 times a day for 1 month and then once daily Rosuvastatin Calcium (Crestor) 20 MG TABLET 1 TAB PO DAILY CHOLESTEROL ( Reported) Ubidecarenone (Co Q-10) 200 MG CAPSULE 1 CAP PO DAILY SUPPLEMENT (Reported) Current Medications: Current Medications Sig/Angel Start time Last Medication Dose Route Stop Time Status Admin Acetaminophen 1,000 MG Q6P PRN 12/01 1915 AC IV Amlodipine Besylate 5 MG DAILY 12/02 09 AC 12/03 PO 0855 Aspirin Buffered 81 MG DAILY 12/02 08 AC 12/03 PO 0859 Atorvastatin Calcium 80 MG 1700 12/02 1700 AC 12/02 PO 1637 Ceftriaxone Sodium 1,000 MG DAILY 12/02 09 AC 12/03 IV 0900 Cholecalciferol 2,000 IU DAILY 12/02 09 AC 12/03 PO 0854 Fish Oil 1,050 MG DAILY 12/02 09 AC 12/03 PO 0859 Guaifenesin 0 .STK-MED ONE 12/03 2103 IN PO Guaifenesin/ 10 ML Q6P PRN 12/02 2044 AC 12/03 Dextromethorphan PO 09 Levothyroxine Sodium 0.1 MG DAILY AC 12/02 07 AC 12/03 PO 0615 Losartan Potassium 25 MG DAILY 12/02 899 AC 12/03 PO 0859 Pantoprazole Sodium 40 MG DAILY 12/01 1952 AC 12/03 IV 0900 Sodium Chloride 1,000 ML Q10H 12/02 0945 12/03 IV 0429 Sodium Chloride 1,000 ML Q13H 12/02 0345 IN 12/02 IV 12/02 1644 0406 Past History Travel History Traveled to [place] past 21 day No Medical History Neurological: NONE EENT: NONE Cardiovascular: hypertension, hyperlipidemia Respiratory: COPD, emphysema Gastrointestinal: NONE Hepatic: NONE Renal: SEES "YUMIKO" Musculoskeletal: degen joint disease Psychiatric: NONE Endocrine: NONE Blood Disorders: NONE Cancer(s): prostate cancer 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 Home Services at Home: None Smoking Status: Never Smoked ETOH Use: occasional use Illicit Drug Use: denies illicit drug use Functional Ability ADLs Independent: dressing, eating, toileting, bathing. Ambulation: independent IADLs Needs Assist: shopping, housework, finances, food prep, telephone, transportation, medication admin. Review of Systems Review of Systems Constitutional: Denies: chills, fever. EENTM: Denies: icterus, epistaxis. Cardiovascular: Denies: chest pain, syncope. Respiratory: Reports: short of breath. Denies: cough. GI: Reports: see HPI. Genitourinary: Denies: dysuria, hematuria. Musculoskeletal: Denies: muscle stiffness, neck pain. Skin: Denies: jaundice, lesions. Neurological/Psychological: Denies: cognitive dysfunction, headache. Hematologic/Endocrine: Denies: bruising, bleeding. Exam & Diagnostic Data Vital Signs and I&O Vital Signs Date Time Temp Pulse Resp B/P B/P Pulse O2 O2 Flow FiO2 Mean Ox Delivery Rate 12/03 0859 106 136/66 12/03 0855 106 136/12/03 0700 93 Nasal 2.0L Cannula 12/03 0626 98.7 100 20 13612/03 0000 Room Air 12/02 2334 Room Air Room Air 12/02 2205 98.3 87 18 115/56 91 Room Air 12/02 1430 98.5 92 18 121/69 96 Room Air Intake & Output 12/03 0400 12/02 0400 12/01 1600 12/01 0400 Intake Total 087 233 9755 Output Total 041 921 8106 Balance 50 -400 -115 Intake, IV 800 300 925 Intake, Oral 860 Number 0 Bowel Movements Output, Urine 679 862 3042 Patient 170 lb Weight Weight Bed scale Measurement Method Physical Exam: Well-developed, well-nourished, in no apparent distress. Alert and oriented. Skin normal without rash, jaundice, lesion. No adenopathy. No scleral icterus, oropharyngeal lesion, neck mass or thyromegaly. Heart regular rhythm. Lungs clear anterolaterally. Abdomen soft, nondistended, normal bowel sounds; no tenderness, mass, organomegaly. Extremities without clubbing, cyanosis or edema ; distal pulses intact. Results Pertinent Lab Results: Laboratory Tests 12/03 12/03 0838 0125 Chemistry Sodium (137 - 145 mmol/L) 136 L Potassium (3.5 - 5.1 mmol/L) 4.7 Chloride (98 - 107 mmol/L) 110 H Carbon Dioxide (22 - 30 mmol/L) 21 L Anion Gap (5 - 16) 6 BUN (9 - 20 mg/dL) 56 H Creatinine (0.7 - 1.2 mg/dL) 2.5 H Estimated GFR (>60 ml/min) 25 L BUN/Creatinine Ratio (7 - 25 %) 22.4 Hematology CBC w Diff NO MAN DIFF REQ WBC (4.8 - 10.8 /CUMM) 10.5 RBC (4.70 - 6.10 /CUMM) 2.81 L Hgb (14.0 - 18.0 G/DL) 8.4 L Hct (42 - 52 %) 25.3 L MCV (80.0 - 94.0 FL) 90.1 MCH (27.0 - 31.0 PG) 29.8 MCHC (33.0 - 37.0 G/DL) 33.0 RDW (11.5 - 14.5 %) 13.5 Plt Count (130 - 400 /CUMM) 239 MPV (7.4 - 10.4 FL) 8.1 Gran % (42.2 - 75.2 %) 76.0 H Lymphocytes % (20.5 - 51.1 %) 11.8 L Monocytes % (1.7 - 9.3 %) 10.2 H Eosinophils % (0 - 5 %) 1.8 Basophils % (0.0 - 2.0 %) 0.2 Absolute Granulocytes (1.4 - 6.5 /CUMM) 8.0 H Absolute Lymphocytes (1.2 - 3.4 /CUMM) 1.2 Absolute Monocytes (0.10 - 0.60 /CUMM) 1.1 H Absolute Eosinophils (0.0 - 0.7 /CUMM) 0.2 Absolute Basophils (0.0 - 0.2 /CUMM) 0 Urines Urine Color (YEL,AMB,STR) YEL Urine Clarity (CLEAR) CLEAR Urine pH (5.0 - 8.0) 6.0 Ur Specific [place] (1.001 - 1.035) 1.015 Urine Protein (NEG,<30 MG/DL) NEG Urine Ketones (NEG) NEG Urine Nitrite (NEG) NEG Urine Bilirubin (NEG) NEG Urine Urobilinogen (0.1 - 1.0 EU/dl) 0.2 Ur Leukocyte Esterase (NEG) NEG Ur Microscopic SEDIMENT EXAMINED Urine RBC (0 - 5 /HPF) 1-3 Urine WBC (0 - 2 /HPF) RARE Ur Epithelial Cells (NONE,FEW) RARE Urine Hemoglobin (NEG) TRACE-LYSED H Urine Glucose (N MG/DL) NEG 12/02 12/01 12/01 0705 1904 1850 Chemistry Sodium (137 - 145 mmol/L) 136 L Potassium (3.5 - 5.1 mmol/L) 4.5 Chloride (98 - 107 mmol/L) 106 Carbon Dioxide (22 - 30 mmol/L) 21 L Anion Gap (5 - 16) 9 BUN (9 - 20 mg/dL) 72 H Creatinine (0.7 - 1.2 mg/dL) 3.4 H Estimated GFR (>60 ml/min) 17 L BUN/Creatinine Ratio (7 - 25 %) 21.2 Lactic Acid (0.7 - 2.1 mmol/L) Cancelled 0.9 Phosphorus (2.5 - 4.5 mg/dL) 4.1 Magnesium (1.6 - 2.3 mg/dL) 2.3 Troponin I (<0.11 ng/ml) < 0.01 Hematology CBC w Diff NO MAN DIFF REQ WBC (4.8 - 10.8 /CUMM) 11.2 H RBC (4.70 - 6.10 /CUMM) 2.93 L Hgb (14.0 - 18.0 G/DL) 8.8 L Hct (42 - 52 %) 26.2 L MCV (80.0 - 94.0 FL) 89.2 MCH (27.0 - 31.0 PG) 29.9 MCHC (33.0 - 37.0 G/DL) 33.5 RDW (11.5 - 14.5 %) 13.6 Plt Count (130 - 400 /CUMM) 239 MPV (7.4 - 10.4 FL) 8.3 Gran % (42.2 - 75.2 %) 78.6 H Lymphocytes % (20.5 - 51.1 %) 10.5 L Monocytes % (1.7 - 9.3 %) 9.9 H Eosinophils % (0 - 5 %) 0.7 Basophils % (0.0 - 2.0 %) 0.3 Absolute Granulocytes (1.4 - 6.5 /CUMM) 8.8 H Absolute Lymphocytes (1.2 - 3.4 /CUMM) 1.2 Absolute Monocytes (0.10 - 0.60 /CUMM) 1.1 H Absolute Eosinophils (0.0 - 0.7 /CUMM) 0.1 Absolute Basophils (0.0 - 0.2 /CUMM) 0 12/01 12/01 1650 1644 Chemistry Sodium (137 - 145 mmol/L) 132 L Potassium (3.5 - 5.1 mmol/L) 4.7 Chloride (98 - 107 mmol/L) 99 Carbon Dioxide (22 - 30 mmol/L) 20 L Anion Gap (5 - 16) 14 BUN (9 - 20 mg/dL) 74 H Creatinine (0.7 - 1.2 mg/dL) 4.0 H Estimated GFR (>60 ml/min) 14 L BUN/Creatinine Ratio (7 - 25 %) 18.5 Glucose (65 - 99 mg/dL) 166 H Serum Osmolality (285 - 295 MOSM/KG) 309 H Lactic Acid (0.7 - 2.1 mmol/L) 1.6 Calcium (8.4 - 10.2 mg/dL) 9.3 Total Bilirubin (0.2 - 1.3 mg/dL) 0.3 AST (17 - 59 U/L) 25 ALT (21 - 72 U/L) 22 Alkaline Phosphatase (< 127 U/L) 51 Troponin I (<0.11 ng/ml) < 0.01 Total Protein (6.3 - 8.2 g/dL) 6.7 Albumin (3.5 - 5.0 g/dL) 3.8 Globulin (1.9 - 4.2 gm/dL) 2.9 Albumin/Globulin Ratio (1.1 - 2.2 %) 1.3 Amylase (30 - 110 U/L) 88 Lipase (23 - 300 U/L) 345 H Hematology CBC w Diff MAN DIFF ORDERED WBC (4.8 - 10.8 /CUMM) 16.9 H RBC (4.70 - 6.10 /CUMM) 3.59 L Hgb (14.0 - 18.0 G/DL) 10.6 L Hct (42 - 52 %) 31.7 L MCV (80.0 - 94.0 FL) 88.2 MCH (27.0 - 31.0 PG) 29.6 MCHC (33.0 - 37.0 G/DL) 33.6 RDW (11.5 - 14.5 %) 13.7 Plt Count (130 - 400 /CUMM) 305 MPV (7.4 - 10.4 FL) 8.2 Gran % (42.2 - 75.2 %) 87.4 H Lymphocytes % (20.5 - 51.1 %) 5.8 L Monocytes % (1.7 - 9.3 %) 6.5 Eosinophils % (0 - 5 %) 0.2 Basophils % (0.0 - 2.0 %) 0.1 Absolute Granulocytes (1.4 - 6.5 /CUMM) 14.7 H Segmented Neutrophils (42.2 - 75.2 %) 88 H Absolute Lymphocytes (1.2 - 3.4 /CUMM) 1.0 L Lymphocytes (20.5 - 51.1 %) 6 L Monocytes (1.7 - 9.3 %) 6 Absolute Monocytes (0.10 - 0.60 /CUMM) 1.1 H Absolute Eosinophils (0.0 - 0.7 /CUMM) 0 Absolute Basophils (0.0 - 0.2 /CUMM) 0 Platelet Estimate (ADEQUATE) ADEQUATE Hypochromic-Microcytic 1+ Urines Urinalysis MOD H Urine Color (YEL,AMB,STR) YEL Urine Clarity (CLEAR) HAZY H Urine pH (5.0 - 8.0) 6.0 Ur Specific [place] (1.001 - 1.035) 1.025 Urine Protein (NEG,<30 MG/DL) 100 H Urine Ketones (NEG) NEG Urine Nitrite (NEG) NEG Urine Bilirubin (NEG) NEG Urine Urobilinogen (0.1 - 1.0 EU/dl) 0.2 Ur Leukocyte Esterase (NEG) SMALL H Ur Microscopic SEDIMENT EXAMINED Urine RBC (0 - 5 /HPF) 3-5 Urine WBC (0 - 2 /HPF) 25-50 H Ur Epithelial Cells (NONE,FEW) FEW Urine Bacteria (NEG/NONE) FEW H Hyaline Casts (0/LPF) 15-25 H Granular Casts (NONE /LPF) 3-5 H Urine Hemoglobin (NEG) SMALL H Urine Glucose (N MG/DL) NEG 12/01 1615 Urines Urine Osmolality (300 - 1000 MOSM/KG) 363 Imaging/Other Studies: CT ABDOMEN AND PELVIS WITHOUT CONTRAST CLINICAL INFORMATION: Periumbilical abdominal pain and anorexia. COMPARISON: Abdominal CT favored 2014. TECHNIQUE: Multidetector volumetric imaging was performed from the superior aspect of the liver through the pubic symphysis. Sagittal and coronal reformatted images were obtained on the technologist's workstation. FINDINGS: The lung bases are clear. There is stranding between the pancreatic head and second and third portions of the duodenum that may reflect pancreatitis or duodenitis which can be correlated with serum amylase/lipase. No drainable fluid collections and no free air. There are a few punctate calcifications throughout the pancreas. The spleen is atrophic. Unenhanced liver and gallbladder are unremarkable. The adrenal glands are unremarkable. There is nonspecific perinephric stranding bilaterally. There is a left renal cyst. No hydronephrosis. Extensive aortoiliac atherosclerotic calcification. There is no bowel obstruction. Appendix not definitively identified. The bladder is decompressed, appears partially thick-walled, and there is adjacent stranding. Recommend correlation with urinalysis to exclude infection. Alternatively this may be posttreatment related given the presence of prostatic therapy seeds. No pelvic adenopathy. No free fluid within the pelvis. There are no acute osseous abnormalities. Grade 1 degenerative anterolisthesis in the setting of advanced hypertrophic facet arthropathy at L4-L5. Additional multilevel lumbar spondylosis. Right hip prosthesis. Hypertrophic degenerative changes involving the SI joints bilaterally. Fat-containing left inguinal hernia. IMPRESSION: - There is stranding between the pancreatic head and second and third portions of the duodenum that may reflect pancreatitis or duodenitis which can be correlated with serum amylase/lipase. No drainable fluid collections and no free air. - The bladder is decompressed, appears partially thick-walled, and there is adjacent stranding. Recommend correlation with urinalysis to exclude infection. Alternatively this may be posttreatment related given the presence of prostatic therapy seeds. Assessment/Plan Assessment/Recommendations: Upper abdominal burning, resolved. Imaging suggestion of duodenitis/possible peptic ulcer disease. The patient takes aspirin, and was recently started on what appears to be a short course of corticosteroids. Not clinical pancreatitis , either by symptoms, imaging, or enzymes (borderline lipase elevation nonspecific, and also may be secondary to decreased renal clearance). Recommendations * Agree with discharge to home * Follow-up in my office within several weeks; the patient will call earlier with recurrent symptoms. * Low threshold for performing endoscopy. * PPI therapy, empirically, for 1 month * Continue low-dose aspirin Consult Acknowledgment - Thank you for your consult request.
[2017-12-03 14:27] VITALS: BP 108/57
--- NOTE | 2017-12-03 20:19 | Discharge Summary ---
Visit Information Visit Dates Admission Date: 12/01/17 Discharge Date: 12/03/17 Hospital Course Course Attending Physician: Brendan Banda MD Primary Care Physician: Jeremy ZAMUDIO,Raj De Leon Hospital Course: Patient is 82-year-old male with past history significant for prostate cancer, neurogenic bladder requiring straight cath 3 times a day, COPD/emphysema presented to [facility] after being sent by his PCP due to concern of progressive worsening right sided abdominal pain, poor appetite, decreased urination. Patient sustained recent pneumonia for which he is still on antibiotic course and steroid taper. He did have lightheadedness and fatigue. Vital signs at presentation are afebrile, blood pressure 100/60 mmHg, heart rate 98. Labs to 2 white count of 16.9, H&H 10/31, left shift. Chem panel sodium 132, BUN/ creatinine 74/4, lipase 345. LFT's are unremarkable. UA is hazy with 25-50 white count, hyaline casts and granular casts. CT abdomen and pelvis did show stranding between pancreatic head, second and third portions of duodenum. Bladder appears partially thickened with adjacent stranding. Plan Admitted to general medicine floor Sepsis of urological origin Patient had long time history of neurogenic bladder with straight catheterization. He does have Prostate cancer f/b TURP, persistently elevated PSA requiring hormonal therapy/other supportive therapies. UA positive, decreased PO intake, abdominal pain. Renal ultrasound did show hyperechoic kidneys bilaterally with hypoechoic cortical lesion on right. (9cm, 9cm). He was agressively hydrated. he was started on IV ceftriaxone transitionedto keflex for a total of 14 days. Duodenitis Abdominal pain with CT scan showing duodenitis. He was started on IV PPI, transitioned to oral omez. Needs GI follow up as outpatient. Low threshold to do endoscopy if symptoms recur. LAXMI on CKD Likely due to infection. Needs to rule out obstruction. Provided with IV hydration. Cr at discharge was 2.5. HTN: Continued amlodipine 5mg daily, losartan 25mg daily, ASA 81mg daily HLD: continued Crestor 20mg daily Complications: none Allergies: Coded Allergies: NO KNOWN ALLERGIES (07/21/15) Significant Procedures: Abdomen and pelvis CT IMPRESSION: - There is stranding between the pancreatic head and second and third portions of the duodenum that may reflect pancreatitis or duodenitis which can be correlated with serum amylase/lipase. No drainable fluid collections and no free air. - The bladder is decompressed, appears partially thick-walled, and there is adjacent stranding. Recommend correlation with urinalysis to exclude infection. Alternatively this may be posttreatment related given the presence of prostatic therapy seeds. CXR on 12/01/17 IMPRESSION: Previously seen bibasilar opacities have improved, particularly at the right lung base. No new airspace opacities. Renal ultrasound on 12/02/17 IMPRESSION: 1. No evidence of nephrolithiasis or hydronephrosis. 2. Kidneys are hyperechoic, bilaterally, consistent with medical renal disease. 3. Simple cysts of both kidneys. Also, there is a small, 0.9 cm hypoechoic cortical lesion of the right kidney. This lesion is difficult to characterize. It cannot be characterized on the recent noncontrast CT images of 12/01/2017. If deemed clinically appropriate, obtain renal ultrasound follow-up in 6-12 months to ensure stability of this indeterminate lesion. Pertinent Lab Results: as above Disposition Summary Disposition Principal Diagnosis: Sepsis of urological origin Additional Diagnosis: Duodenitis LAXMI on CKD Discharge Disposition: home or self care Discharge Instructions General Discharge Information Code Status: Full Code Patient's Diet: as tolerated Patient's Activity: as tolerated Follow-Up Instructions/Appts: 1. Please follow up with your PCP within a week of discharge 2 Please establish care with Dr. Clark for your abdominal pain 3. Please take the new medicines as pescribed Medications at Discharge Discharge Medications: Stop taking the following medications: Levofloxacin (Levaquin) 500 MG TABLET ORAL DAILY Methylprednisolone. (Medrol) 4 MG TAB.DS.PK ORAL As Directed Continue taking these medications: Levothyroxine Sodium (Levothyroxine Sodium) 100 MCG TABLET 1 Tablet ORAL DAILY Comments: Last Taken:12/03/17 Time: 6:15 AM Manvel-3 Fatty Acids (Manvel-3) (Unknown Strength) CAPSULE 2 Capsule ORAL DAILY Comments: NOT GIVEN IN HOSPITAL Cholecalciferol (Vitamin D3) (Vitamin D3) 2,000 UNIT CAPSULE 1 Capsule ORAL DAILY Comments: Last Taken:12/03/17 Time:8:54 AM Ubidecarenone (Co Q-10) 200 MG CAPSULE 1 Capsule ORAL DAILY Comments: NOT GIVEN IN HOSPITAL Aspirin (Ecotrin*) 81 MG TABLET. 1 Tablet ORAL DAILY Comments: Last Taken:12/03/17 Time:8:59 AM Amlodipine Besylate (Amlodipine Besylate) 5 MG TABLET 1 Tablet ORAL DAILY Comments: Last Taken:12/03/17 Time:8:55 AM Rosuvastatin Calcium (Crestor) 20 MG TABLET 1 Tablet ORAL DAILY Comments: NOT GIVEN IN HOSPITAL Losartan Potassium (Cozaar) 25 MG TABLET 1 Tablet ORAL DAILY Comments: Last Taken:12/03/17 Time:8:59 AM Start taking the following new medications: Cephalexin (Keflex) 500 MG CAPSULE 1 Capsule ORAL THREE TIMES DAILY Qty = 15 No Refills Copies To: Jeremy ZAMUDIO,Raj De Leon; Eduardo ZAMUDIO,Tushar Encarnacion Attending MD Review Statement Documenting Attending: Marizol Corimer MD
[2017-12-05] MEDS ORDERED: MAGNESIUM CITR296 ML PO (14:01)
== END 2017-12-03 15:18 ==
LOC: ERH 16:09 → ERHI 18:58 → 2NB 18:58 → ENRESERV 20:10 → ENTRNSPT 21:30 → EDTRNSPTSTS 21:34 → EDTRNSPT 21:34 → 2NB 21:37 → CMPTRNSPT 21:53 → ENPENDDIS 12-03 14:52 → ENTRNSPT 12-03 15:06 → 2NB 12-03 15:18 → EDTRNSPTSTS 12-03 15:18 → EDTRNSPT 12-03 15:18 → CMPTRNSPT 12-03 15:40
PROVIDERS: Internal Medicine; Physician Assistant; Student in an Organized Health Care Education/Training Program
DX: A41.9 Sepsis, unspecified organism (principal); Z85.46 Personal history of malignant neoplasm of prostate; J44.9 Chronic obstructive pulmonary disease, unspecified; K29.80 Duodenitis without bleeding; N17.9 Acute kidney failure, unspecified; I12.9 Hypertensive chronic kidney disease with stage 1 through stage 4 chronic kidney disease, or unspecified chronic kidney disease; N18.9 Chronic kidney disease, unspecified; N39.0 Urinary tract infection, site not specified; Z79.82 Long term (current) use of aspirin; M19.90 Unspecified osteoarthritis, unspecified site; E78.5 Hyperlipidemia, unspecified
CPT/HCPCS: 36592; 71046; 74176; 76775; 81001; 82436; 87040; 87070; 87086; 93005; 93010; 96374; 96375; 96376; G0378; J0696

== ENCOUNTER 2017-12-10 06:10 | Inpatient (IN) | payer OTHER, MEDICARE ==
[~2017-12-10] VITALS: Ht 162.6 cm; Wt 76.7 kg
[~2017-12-10 06:10] MED LIST changes: +AMLODIPINE BESYL5 M1 PO; +COZAAR25 M1 PO; +CRESTOR20 M2 PO; +KEFLEX500 M1 PO; +LEVAQUIN500 M1 PO; +MAGNESIUM CITR296 ML PO; +MEDROL4 M2 PO
--- NOTE | 2017-12-10 06:41 | ED AMS/SEIZURE/WEAK/DIZZY ---
History of Present Illness General Chief Complaint: Syncope and Near-Syncope Stated Complaint: BIBA NEAR SYCOPE Source: patient, family, old records, EMS Exam Limitations: no limitations Vital Signs & Intake/Output Vital Signs & Intake/Output Vital Signs Date Time Temp Pulse Resp B/P B/P Pulse O2 O2 Flow FiO2 Mean Ox Delivery Rate 12/10 0626 Room Air 12/10 0616 98.2 96 20 107/53 94 Room Air Allergies Coded Allergies: NO KNOWN ALLERGIES (07/21/15) Reconcile Medications Amlodipine Besylate 5 MG TABLET 1 TAB PO DAILY BP (Reported) Aspirin (Ecotrin*) 81 MG TABLET.DR 1 TAB PO DAILY HEART/BLOOD (Reported) Cephalexin (Keflex) 500 MG CAPSULE 1 CAP PO TID UTI Cholecalciferol (Vitamin D3) (Vitamin D3) 2,000 UNIT CAPSULE 1 CAP PO DAILY SUPPLEMENT (Reported) Levothyroxine Sodium 100 MCG TABLET 1 TAB PO DAILY THYROID (Reported) Losartan Potassium (Cozaar) 25 MG TABLET 1 TAB PO DAILY BP (Reported) Magnesium Citrate 296 ML SOLUTION 296 ML PO ONCE PRN constipation Quitman-3 Fatty Acids (Quitman-3) (Unknown Strength) CAPSULE 2 CAP PO DAILY SUPPLEMENT (Reported) Rosuvastatin Calcium (Crestor) 20 MG TABLET 1 TAB PO DAILY CHOLESTEROL ( Reported) Ubidecarenone (Co Q-10) 200 MG CAPSULE 1 CAP PO DAILY SUPPLEMENT (Reported) Core Measure Meds Pre-Hospital aspirin Triage Note: PT BIBA FROM HOME S/P NEAR SYNCOPAL EPISODE WHILE ATTEMPTING TO STRAIGHT CATH SELF THIS AM (PT BASELINE STRAIGHT CATH 3X DAY). PT BECAME LIGHTHEADED AND DIZZY AND LOWERED SELF INTO CHAIR, DENIES FALL, DENIES HEADSTRIKE. DENIES CP. REPORTS SOME EXERTIONAL SOB. PER PT WAS SEEN HERE TWICE LAST WEEK FOR DEHYDRATION, REPORTS LOSS OF APPETITE. PT APPEARS JAUNDICE. A/O. NSR ON MONITOR. MD FRY TO BEDSIDE. Triage Nurses Notes Reviewed? yes Onset: Just prior to arrival Duration: day(s):, continues in ED, getting worse Timing: recent history Injury Environment: home Severity: moderate, severe Modifying Factors: Improves With: rest. Worsens With: movement. HPI: 1 week prior to admission since being discharged from the hospital the patient is had progressive weakness and fatigue decreased appetite. Prior to admission he awoke to self catheterize himself. While in the wheelchair he became weak and almost passing out. He denies fever chills nausea vomiting diarrhea abdominal pain chest pain shortness of breath headache dysuria rash bleeding. (Sha Fry MD) Past History Travel History Traveled to [place] past 21 day No Medical History Any Pertinent Medical History? 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 No (Sha Fry MD) Review of Systems Review of Systems Constitutional: Reports: see HPI, malaise, weakness. EENTM: Reports: no symptoms. Respiratory: Reports: no symptoms. Cardiovascular: Reports: no symptoms. GI: Reports: see HPI, changes in stool. Genitourinary: Reports: no symptoms. Musculoskeletal: Reports: no symptoms. Skin: Reports: see HPI, change in skin color. Neurological/Psychological: Reports: no symptoms. Hematologic/Endocrine: Reports: no symptoms. Immunologic/Allergic: Reports: no symptoms. All Other Systems: Reviewed and Negative (Sha Fry MD) Physical Exam Physical Exam General Appearance: well developed/nourished, alert, awake, moderate distress Head: atraumatic, normal appearance Eyes: Bilateral: normal appearance, PERRL, EOMI. Ears, Nose, Throat: normal pharynx, normal ENT inspection, hearing grossly normal Neck: normal inspection, supple, full range of motion, no midline tenderness Respiratory: normal breath sounds, chest non-tender, no respiratory distress, quiet respiration, lungs clear Cardiovascular: regular rate/rhythm, normal peripheral pulses, norml femoral pulses equa Peripheral Pulses: 4+ carotid (R), 4+ carotid (L) Gastrointestinal: normal bowel sounds, soft, non-tender, no organomegaly Back: normal inspection, normal range of motion Extremities: normal range of motion, no ligament instability Neurologic/Psych: no motor/sensory deficits, awake, alert, oriented x 3, normal mood/affect, director market intelligence II-XII nml as tested Reflexes: 2+: bicep (R), bicep (L). Skin: intact, pallor Lymphatic: no anterior cervical deanna Core Measures ACS in differential dx? Yes No ASA d/t Pharmacological CI (ASA PRIMARY EDUCATION PROFESSOR) CVA/TIA Diagnosis No Sepsis Present: No Sepsis Focused Exam Completed? No (Eugene ZAMUDIO,Sha) Physical Exam Comments: FOBT+ (Michael ZAMUDIO,Raheem) Progress Differential Diagnosis: dehydration Plan of Care: Orders Procedure Date/time Status BLOOD PRODUCT PICKUP 12/10 0846 Active Add-on Test (ER Only) 12/10 0835 Active PARTIAL THROMBOPLASTIN TIME 12/10 0835 Active PROTHROMBIN TIME 12/10 0835 Active Patient Data 12/10 0815 Active Admit to inpatient 12/10 0752 Active TYPE & SCREEN (NOT X-MATCH) 12/10 0731 Active LEUKOCYTE POOR (PACKED CELLS) 12/10 0731 Active Gutierrez, Insertion/Removal/Asses 12/10 0724 Active CULTURE,URINE 12/10 0724 Active TOTAL TRIODOTHYROXINE 12/10 0652 Active LIPASE 12/10 0652 Active FREE T4 12/10 0652 Active AMYLASE 12/10 0652 Active URINALYSIS 12/10 0637 Active TSH REFLEX 12/10 0637 Active TROPONIN LEVEL 12/10 0637 Active MAGNESIUM 12/10 0637 Active COMPREHENSIVE METABOLIC PANEL 12/10 0637 Active CBC WITHOUT DIFFERENTIAL 12/10 0637 Complete Intake & Output 12/10 0626 Active EKG 12/10 0613 Active Current Medications Sig/Angel Start time Last Medication Dose Stop Time Status Admin Pantoprazole Sodium 80 MG ONCE ONE 12/10 0900 UNVr (Protonix) 12/10 0901 Laboratory Tests 12/10/17 0652: Anion Gap 7, Estimated GFR 29 L, BUN/Creatinine Ratio 22.3, Glucose 212 H, Calcium 7.9 L, Magnesium 2.2, Total Bilirubin 0.2, AST 12 L, ALT 21, Alkaline Phosphatase 40, Troponin I < 0.01, Total Protein 5.1 L, Albumin 2.8 L, Globulin 2.3, Albumin/Globulin Ratio 1.2, Amylase Pending, Lipase Pending, Free T4 0.88, Total T3 Pending, TSH &T3 &Free T4 Intrp 11.800 H, CBC w Diff MAN DIFF ORDERED, RBC 1.34 L, MCV 91.0, MCH 30.3, MCHC 33.3, RDW 14.5, MPV 7.2 L, Gran % 88.1 H, Lymphocytes % 5.8 L, Monocytes % 5.6, Eosinophils % 0.4, Basophils % 0.1, Absolute Granulocytes 17.7 H, Absolute Lymphocytes 1.2, Absolute Monocytes 1.1 H, Absolute Eosinophils 0.1, Absolute Basophils 0, Platelet Estimate ADEQUATE, Polychromasia 1+, Hypochromic-Microcytic 1+, Poikilocytosis 1+, Anisocytosis 2+, Microcytic Cells 1+, Macrocytic Cells 2+ Microbiology 12/11 723 URINE ROUT: Urine Culture - ORD Initial ED EKG: normal axis, normal intervals, normal p-waves, normal QRS complex, normal sinus rhythm, no ST T wave changes Prior EKG: unchanged Rhythm Strip: normal sinus rhythm Hand-Off Endorsed To: Raheem Rodriguez MD Endorsed Time: 712 Pending: labs, Xray (Sha Fry MD) Departure Departure Disposition: STILL A PATIENT Referrals: Raj Luna MD (PCP/Family) Departure Forms: Customer Survey General Discharge Information (Sha Fry MD) Departure Condition: Guarded Clinical Impression Primary Impression: Anemia Qualifiers: Anemia type: unspecified type Qualified Code: D64.9 - Anemia, unspecified Secondary Impressions: Fatigue Qualifiers: Fatigue type: other Qualified Code: R53.83 - Other fatigue GI bleed Qualifiers: GI bleed type/associated pathology: melena Qualified Code: K92.1 - Melena Near syncope Obstructive uropathy (Raheem Rodriguez MD)
[2017-12-10 07:06] LABS: ABSOLUTE BASOPHIL COUNT 0 /CUMM (0.0-0.2); ABSOLUTE EOSINOPHIL COUNT 0.1 /CUMM (0.0-0.7); ABSOLUTE GRANULOCYTE CT 17.7 /CUMM (1.4-6.5); ABSOLUTE LYMPH COUNT 1.2 /CUMM (1.2-3.4); ABSOLUTE MONOCYTE COUNT 1.1 /CUMM (0.10-0.60); BASOPHIL % 0.1 % (0.0-2.0); EOSINOPHIL % 0.4 % (0-5); GRANULOCYTE % 88.1 % (42.2-75.2); MEAN CORPUSCULAR HGB 30.3 PG (27.0-31.0); MEAN CORPUSCULAR HGB CONC 33.3 G/DL (33.0-37.0); MEAN PLATELET VOLUME 7.2 FL (7.4-10.4); PLATELET COUNT 348 /CUMM (130-400); RBC DISTRIBUTION WIDTH 14.5 % (11.5-14.5); WHITE BLOOD CELL COUNT 20.1 /CUMM (4.8-10.8)
[2017-12-10 07:07] LABS: RED BLOOD CELL CT 1.34 /CUMM (4.70-6.10)
[2017-12-10 07:16] LABS: HEMATOCRIT 12.2 % (42-52)
--- NOTE | 2017-12-10 08:00 | RADIOLOGY REPORT ---
EXAMINATION: XR PORTABLE CHEST CLINICAL INFORMATION: Weakness, near syncope. COMPARISON: 12/01/2017 TECHNIQUE: Portable AP 30 degree upright view of the chest was obtained. FINDINGS: Lung volumes are decreased. Mild subsegmental atelectasis is seen at the right lung base. No significant consolidation or atelectasis. The heart is not significantly enlarged allowing for the portable technique. Prior right healed seventh rib fracture anteriorly. IMPRESSION: Low lung volumes. Minor atelectasis at the right lung base without significant consolidation or atelectasis.
--- NOTE | 2017-12-10 08:41 | History & Physical ---
B[place] ZAMUDIO,[facility] 12/10/17 0840: General Information and HPI MD Statement: I have seen and personally examined JAYA GARCIA and documented this H&P. The patient is a 82 year old M who presented with a patient stated chief complaint of [near syncope]. 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 Gruber, recent discharge on 12/03 after was admitted for UTI and acute on chronic CKD. At that time patient had a complain of right-sided abdominal pain, CAT scan abdomen and pelvis revealed duodenitis/possible peptic ulcer disease. GI consultation was obtained with recommendation for outpatient follow-up and PPI. Patient had an ED visit 2 days after discharge on 12/05 because of abdominal pain and black stool, blood work revealed hemoglobin of 8.2 down from 8.4 on discharge, repeated CAT scan showed slight however persistent signs of duodenitis. Patient was discharged home with recommendation for bowel regimen. According to the patient and his daughters, after receiving bowel regimen he had multiple watery diarrhea with black stool, abdominal pain resolved after that and denied any abdominal pain nausea or vomiting at the moment. However patient reported new onset of dizziness that has been progressively worsened over the course of 3 days and today he was very dizzy, confused and blurry vision and daughter called EMS. Patient also reported upper sternal burning chest pain associated with shortness of breath and palpitation that comes when he stands up and relieved by sitting. Patient denied any radiation, sweating. Patient denied any previous history of similar symptoms. Patient reported history of 6 pounds weight loss over the last couple of days. Patient was recently treated for an outpatient pneumonia with antibiotic and steroid pack Patient follow-up with Allyn Guzman, Dhara, Graeme and Marcos Allergies/Medications Allergies: Coded Allergies: NO KNOWN ALLERGIES (07/21/15) Home Med list Amlodipine Besylate 5 MG TABLET 1 TAB PO DAILY BP (Reported) Aspirin (Ecotrin*) 81 MG TABLET.DR 1 TAB PO DAILY HEART/BLOOD (Reported) Cholecalciferol (Vitamin D3) (Vitamin D3) 2,000 UNIT CAPSULE 1 CAP PO DAILY SUPPLEMENT (Reported) Levothyroxine Sodium 100 MCG TABLET 1 TAB PO DAILY THYROID (Reported) Losartan Potassium (Cozaar) 25 MG TABLET 1 TAB PO DAILY BP (Reported) [place]-3 Fatty Acids ([place]olt-3) (Unknown Strength) CAPSULE 2 CAP PO DAILY SUPPLEMENT (Reported) Rosuvastatin Calcium (Crestor) 20 MG TABLET 1 TAB PO DAILY CHOLESTEROL ( Reported) Ubidecarenone (Co Q-10) 200 MG CAPSULE 1 CAP PO DAILY SUPPLEMENT (Reported) Past History Travel History Traveled to [place] past 21 day No Medical History Neurological: NONE EENT: NONE Cardiovascular: hypertension, hyperlipidemia Respiratory: COPD, emphysema Gastrointestinal: NONE Hepatic: NONE Renal: SEES "YUMIKO" Musculoskeletal: degen joint disease Psychiatric: NONE Endocrine: NONE Blood Disorders: NONE Cancer(s): prostate 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 Ambulation: independent IADLs Needs Assist: shopping, housework, finances, food prep, telephone, transportation, medication admin. Review of Systems Review of Systems Constitutional: Denies: chills, fever, weakness. EENTM: Reports: blurred vision. Denies: epistaxis, nasal pain. Cardiovascular: Reports: chest pain, palpitations. Denies: peripheral edema, syncope. Respiratory: Reports: short of breath. Denies: cough, hemoptysis, orthopnea. GI: Reports: melena. Denies: abdominal pain, nausea, bloody stool, vomiting. Genitourinary: Denies: dysuria, frequency. Skin: Denies: erythema, rash. Neurological/Psychological: Reports: confusion. Denies: depressed. Exam & Diagnostic Data Last 24 Hrs of Vital Signs/I&O Vital Signs Date Time Temp Pulse Resp B/P B/P Pulse O2 O2 Flow FiO2 Mean Ox Delivery Rate 12/10 1020 89 20 95/50 97 Room Air 12/10 0920 97.5 92 18 98/53 97 Room Air 12/10 0856 97.2 93 18 127/54 96 Room Air 12/10 0855 96 Room Air 12/10 0840 97.3 74 22 112/76 95 Room Air 12/10 0626 Room Air 12/10 0616 98.2 96 20 107/53 94 Room Air Intake & Output 12/10 1600 12/10 0800 12/10 0000 Intake Total 0 Output Total Balance 0 Intake, Oral 0 Patient 77.111 kg Weight Physical Exam General Appearance Alert, Oriented X3, Cooperative, No Acute Distress Skin No Rashes, No Breakdown, No Significant Lesion Skin Temp/Moisture Exam: Warm/Dry HEENT Atraumatic, PERRLA, EOMI, Mucous Membr. moist/pink Neck Supple, No JVD Lymphatic No cervical lymphadenopathy Cardiovascular Regular Rate, Normal S1, Normal S2, No Murmurs Lungs Clear to Auscultation, Normal Air Movement Abdomen Normal Bowel Sounds, Soft, No Tenderness Neurological Normal Speech, Strength at 5/5 X4 Ext, Normal Tone, Sensation Intact Extremities No Clubbing, No Cyanosis, No Edema, Normal Pulses Last 24 Hrs of Labs/Herbert: Laboratory Tests 12/10/17 0845: Urinalysis LIGHT H, Urine Color YEL, Urine Clarity HAZY H, Urine pH 6.0, Ur Specific [place] <= 1.005, Urine Protein NEG, Urine Ketones NEG, Urine Nitrite NEG, Urine Bilirubin NEG, Urine Urobilinogen 0.2, Ur Leukocyte Esterase NEG, Ur Microscopic SEDIMENT EXAMINED, Urine RBC RARE, Urine WBC RARE, Ur Epithelial Cells RARE, Urine Bacteria FEW H, Urine Hemoglobin MOD H, Urine Glucose NEG 12/10/17 0652: Anion Gap 7, Estimated GFR 29 L, BUN/Creatinine Ratio 22.3, Glucose 212 H, Calcium 7.9 L, Magnesium 2.2, Total Bilirubin 0.2, AST 12 L, ALT 21, Alkaline Phosphatase 40, Troponin I < 0.01, Total Protein 5.1 L, Albumin 2.8 L, Globulin 2.3, Albumin/Globulin Ratio 1.2, Amylase 114 H, Lipase 497 H, Free T4 0.88, Total T3 0.50 L, TSH &T3 &Free T4 Intrp 11.800 H, PT 11.2, INR 1.03, APTT 24 L, CBC w Diff MAN DIFF ORDERED, RBC 1.34 L, MCV 91.0, MCH 30.3, MCHC 33.3, RDW 14.5, MPV 7.2 L, Gran % 88.1 H, Lymphocytes % 5.8 L, Monocytes % 5.6, Eosinophils % 0.4, Basophils % 0.1, Absolute Granulocytes 17.7 H, Absolute Lymphocytes 1.2, Absolute Monocytes 1.1 H, Absolute Eosinophils 0.1, Absolute Basophils 0, Platelet Estimate ADEQUATE, Polychromasia 1+, Hypochromic- Microcytic 1+, Poikilocytosis 1+, Anisocytosis 2+, Microcytic Cells 1+, Macrocytic Cells 2+ Microbiology 12/10 0845 URINE ROUT: Urine Culture - RECD Diagnostic Data EKG Results Normal sinus rhythm with rate 95, QTc 438 Assessment/Plan Assessment: Problem list #Symptomatic acute blood loss anemia mostly because of upper GI bleeding #Images indicated for the duodenitis #Leukocytosis mostly reactive. No signs or symptoms of infection #Chronic anemia due to chronic kidney disease #Hypertension, hyperlipidemia, prediabetes #CKD stage IIIb with creatinine at baseline 2.2 #Prostate cancer #Thyroid cancer status post excision on Synthroid #COPD/emphysema #Neurogenic bladder with self-catheterization no urinary symptoms Plan Admit to ICU for close monitoring Vitals every hour Strict ins and outs Keep n.p.o. GI consultation Blood and crossmatch with plan to transfuse 3-4 units to keep hemoglobin above 7 Protonix drip Keep large bore IV bilateral No NSAIDs or aspirin or steroid Hold blood pressure medication for now Repeat CBCs later this evening Repeat CBCs and ICU bundle in a.m. Coagulation profile Tropes and EKG 3 Echocardiogram DVT prophylaxis Alps, no pharmacological anticoagulation due to active bleeding Code full Diet n.p.o. As Ranked By This Provider Problem List: 1. Near syncope 2. GI bleed Qualifiers GI bleed type/associated pathology: melena Qualified Code: K92.1 - Melena 3. Fatigue Qualifiers Fatigue type: other Qualified Code: R53.83 - Other fatigue Core Measures/Misc (12/04) Acute Coronary Syndrome ACS Diagnosis: No Congestive Heart Failure Congestive Heart Failure Diagnosis No Cerebrovascular Accident CVA/TIA Diagnosis: No VTE (View Protocol) VTE Risk Factors Age>40 No Mechanical VTE Prophylaxis d/t N/A MechProphylax Ordered No VTE Pharm Prophylaxis d/t Bleeding (Active) Sepsis (View protocol) Sepsis Present: No If YES complete Sepsis Event Note If YES complete Sepsis Event Note Jay ZAMUDIOKinjal 12/10/17 1233: Core Measures/Misc (12/04) Sepsis (View protocol) If YES complete Sepsis Event Note If YES complete Sepsis Event Note Attending MD Review Statement Attending Statement Attending MD Statement: examined this patient, discuss w/resident/PA/OCCUPATIONAL THERAPY MANAGER, agreed w/resident/PA/OCCUPATIONAL THERAPY MANAGER, reviewed EMR data (avail), reviewed images Attending Assessment/Plan: I have personally seen and examined the patient, and agree with the resident's assessment and plan as detailed above. Briefly, the patient is an 82-year-old male with a history significant for prostate cancer status post TURP, elevated PSA on hormonal therapy, neurogenic bladder managed with straight catheterization 3 times daily, thyroid cancer status post excision on Synthroid with endocrine following, hyperglycemia, hypertension, hyperlipidemia, CKD stage III, and COPD, not on home oxygen. The patient is followed by Dr. Gruber. The patient was also noted to have a recent hospitalization (discharged on 12/03) for abdominal pain related to duodenitis/possible peptic ulcer disease. He was seen in the ED on 12/05 due to abdominal pain and black stool. Hemoglobin was 8.2 down from 8.4 on discharge. Repeat CAT scan showed persistent duodenitis. The patient presented to the ED earlier today with multiple episodes of diarrhea with black stool. The patient had associated dizziness, confusion and blurred vision. In the ED the patient was evaluated and found to have a hemoglobin of 4.1. The patient was also had an elevated white blood cell count. The patient was not actively bleeding at the time of admission. The patient is being admitted to the critical care unit for symptomatic acute blood loss anemia most likely secondary to upper GI bleeding. He also has active duodenitis. Leukocytosis is mostly reactive without signs or symptoms of infection. The patient is currently n.p.o., and undergoing transfusion of 3-4 units. We will keep the hemoglobin above 7. Protonix drip has been started. Will monitor I's and O's and vital signs closely. The patient will have 2 large-bore IV lines in the event that he is in need of significant fluid resuscitation. Will hold his blood pressure medications for now. We will continue to monitor CBCs every 8 hours. Follow-up coagulation profile. We will monitor serial EKGs and troponins. GI has been consulted. The patient will undergo endoscopy later today. We will monitor the patient in the critical care unit. He will receive DVT prophylaxis with Alps only for now. I discussed the plan of care at the house staff and asked him to contact me if there are any issues.
[2017-12-10 10:12] LABS: PT 11.2 SEC (9.4-12.5); PTT 24 SEC (25-37)
--- NOTE | 2017-12-10 10:17 | Cons- Gastroenterology ---
General Information and HPI Consulting Request Date of Consult: 12/10/17 Requested By: Kinjal Thompson MD Reason for Consult: Upper Gi bleed; melena, history of duodenitis on a ct scan. Source of Information: patient, old records Exam Limitations: no limitations History of Present Illness: Mr. Cheney is an 82 year old male with PMH for Prostate and thyroid ca, HTN, hyperlipidemia, CRI, PNA and DJD and a recent admission for a dehydration and a PNA for which he had been on antibiotics and steroids who presented to today with complaints of melena and lightheadedness. On his last hospitalization he complained of some abdominal pain during which time he had a ct scan that showed duodenitis and pancreatitis for which a GI consult was obtained and it was recommended he be started on a PPI and to follow up as an outpatient, but it doesn't appear that the ppi was ever started as it is not on his discharge summary or his outpatient medication list. He was continued on oral antibiotics at discharge at 12/03/17 and a daily baby asa and the steroids were discontinued. He does not take other otc nsaids reporting only tylenol use for his chronic knee pain. He represented to the ED on 12/05/17 with complaints of black stool and persistent abdominal pain at which point he had a repeat ct scan that again showed duodenitis/pancreatitis and he was sent home from the ER after he noted improvement in his abdominal pain with a bowel movement and his hgb was stable from discharge a few days prior. He was given a bottle of magnesium citrate as well which he noted resulted in several black bowel movements over the course of 24-36 hours. The pain he was having was in his left side was described as burning in quality. Since discharge from the ER he notes that lhsara has had some intermittent burning discomfort, but after getting magnesium citrate he hasn't had any further significant bowel movements. He also has denies any hematochezia, hematemesis or any vomiting. Today he came to the ER complaining of worsening lightheadeness and he was found to have a hgb of 4.1. In the ER he has been hemodynamically stable, and he was noted to have black stool on rectal exam. He has been started on an IV protonix drip and has been ordered for a few units of PRBCs of which he has received one so far. He has remained hemodynamically stable since presentation to the ER and he hasn't had any BMs since . Allergies/Medications Allergies: Coded Allergies: NO KNOWN ALLERGIES (07/21/15) Home Med List: Amlodipine Besylate 5 MG TABLET 1 TAB PO DAILY BP (Reported) Aspirin (Ecotrin*) 81 MG TABLET.DR 1 TAB PO DAILY HEART/BLOOD (Reported) Cholecalciferol (Vitamin D3) (Vitamin D3) 2,000 UNIT CAPSULE 1 CAP PO DAILY SUPPLEMENT (Reported) Levothyroxine Sodium 100 MCG TABLET 1 TAB PO DAILY THYROID (Reported) Losartan Potassium (Cozaar) 25 MG TABLET 1 TAB PO DAILY BP (Reported) [place]-3 Fatty Acids ([place]-3) (Unknown Strength) CAPSULE 2 CAP PO DAILY SUPPLEMENT (Reported) Omeprazole 40 MG CAPSULE.DR 1 CAP PO BID ACID REFLUX Rosuvastatin Calcium (Crestor) 20 MG TABLET 1 TAB PO DAILY CHOLESTEROL ( Reported) Ubidecarenone (Co Q-10) 200 MG CAPSULE 1 CAP PO DAILY SUPPLEMENT (Reported) Current Medications: Current Medications Sig/Angel Start time Last Medication Dose Route Stop Time Status Admin Diphenhydramine HCl 25 MG ONE 12/10 0730 DC IV 12/10 0731 Pantoprazole Sodium 80 MG ONCE ONE 12/10 0900 DC 12/10 IV 12/10 0901 0855 Pantoprazole Sodium 0 .STK-MED ONE 12/10 0854 DC IV Past History Travel History Traveled to [place] past 21 day No Medical History Neurological: NONE EENT: NONE Cardiovascular: hypertension, hyperlipidemia Respiratory: COPD, emphysema Gastrointestinal: NONE Hepatic: NONE Renal: SEES "YUMIKO" Musculoskeletal: degen joint disease Psychiatric: NONE Endocrine: NONE Blood Disorders: NONE Cancer(s): prostate cancer 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 Ambulation: independent IADLs Needs Assist: shopping, housework, finances, food prep, telephone, transportation, medication admin. Review of Systems Review of Systems Constitutional: Reports: malaise, weakness. Denies: diaphoresis, fever. EENTM: Denies: no symptoms. Cardiovascular: Denies: chest pain, orthopena, palpitations, peripheral edema, syncope. Respiratory: Reports: short of breath. Denies: cough, hemoptysis, orthopnea. GI: Reports: see HPI. Genitourinary: Denies: no symptoms. Musculoskeletal: Reports: joint pain. Skin: Denies: no symptoms. Neurological/Psychological: Reports: weakness. Hematologic/Endocrine: Reports: bleeding. Immunologic/Allergic: Denies: no symptoms. All Other Systems: Reviewed and Negative Exam & Diagnostic Data Vital Signs and I&O Vital Signs Date Time Temp Pulse Resp B/P B/P Pulse O2 O2 Flow FiO2 Mean Ox Delivery Rate 12/11 919 97.5 92 18 98/53 97 Room Air 12/10 0856 97.2 93 18 127/54 96 Room Air 12/10 0855 96 Room Air 12/10 0840 97.3 74 22 112/76 95 Room Air 12/10 0626 Room Air 12/10 0616 98.2 96 20 107/53 94 Room Air Intake & Output 12/10 1600 12/10 0400 12/09 1600 12/09 0400 12/08 1600 12/08 0400 Intake Total 0 Output Total Balance 0 Intake, Oral 0 Patient 170 lb Weight Physical Exam General Appearance: well developed/nourished, no apparent distress, alert, awake , comfortable Head: atraumatic, normal appearance Eyes: Bilateral: normal appearance. Ears, Nose, Throat: normal pharynx, normal ENT inspection Neck: normal inspection, supple, full range of motion Respiratory: normal breath sounds, chest non-tender, no respiratory distress Cardiovascular: regular rate/rhythm Gastrointestinal: normal bowel sounds, soft, non-tender, no organomegaly Rectal: black stool per ED/housestaff Back: normal inspection, normal range of motion Extremities: normal inspection, no edema Neurologic/Psych: no motor/sensory deficits, awake, alert, oriented x 3 Skin: pallor Results Pertinent Lab Results: Laboratory Tests 12/11 0745 Urines Urinalysis LIGHT H Urine Color (YEL,AMB,STR) YEL Urine Clarity (CLEAR) HAZY H Urine pH (5.0 - 8.0) 6.0 Ur Specific [place] (1.001 - 1.035) <= 1.005 Urine Protein (NEG,<30 MG/DL) NEG Urine Ketones (NEG) NEG Urine Nitrite (NEG) NEG Urine Bilirubin (NEG) NEG Urine Urobilinogen (0.1 - 1.0 EU/dl) 0.2 Ur Leukocyte Esterase (NEG) NEG Ur Microscopic SEDIMENT EXAMINED Urine RBC (0 - 5 /HPF) RARE Urine WBC (0 - 2 /HPF) RARE Ur Epithelial Cells (NONE,FEW) RARE Urine Bacteria (NEG/NONE) FEW H Urine Hemoglobin (NEG) MOD H Urine Glucose (N MG/DL) NEG 12/10 0652 Chemistry Sodium (137 - 145 mmol/L) 134 L Potassium (3.5 - 5.1 mmol/L) 4.8 Chloride (98 - 107 mmol/L) 106 Carbon Dioxide (22 - 30 mmol/L) 22 Anion Gap (5 - 16) 7 BUN (9 - 20 mg/dL) 49 H Creatinine (0.7 - 1.2 mg/dL) 2.2 H Estimated GFR (>60 ml/min) 29 L BUN/Creatinine Ratio (7 - 25 %) 22.3 Glucose (65 - 99 mg/dL) 212 H Calcium (8.4 - 10.2 mg/dL) 7.9 L Magnesium (1.6 - 2.3 mg/dL) 2.2 Total Bilirubin (0.2 - 1.3 mg/dL) 0.2 AST (17 - 59 U/L) 12 L ALT (21 - 72 U/L) 21 Alkaline Phosphatase (< 127 U/L) 40 Troponin I (<0.11 ng/ml) < 0.01 Total Protein (6.3 - 8.2 g/dL) 5.1 L Albumin (3.5 - 5.0 g/dL) 2.8 L Globulin (1.9 - 4.2 gm/dL) 2.3 Albumin/Globulin Ratio (1.1 - 2.2 %) 1.2 Amylase (30 - 110 U/L) 114 H Lipase (23 - 300 U/L) 497 H Free T4 (0.85 - 1.93 ng/dL) 0.88 Total T3 (0.97 - 1.69 ng/mL) 0.50 L TSH &T3 &Free T4 Intrp (0.27 - 4.20 uIU/mL) 11.800 H Coagulation PT Pending INR Pending APTT Pending Hematology CBC w Diff MAN DIFF ORDERED WBC (4.8 - 10.8 /CUMM) 20.1 H RBC (4.70 - 6.10 /CUMM) 1.34 L Hgb (14.0 - 18.0 G/DL) 4.1 *L Hct (42 - 52 %) 12.2 *L MCV (80.0 - 94.0 FL) 91.0 MCH (27.0 - 31.0 PG) 30.3 MCHC (33.0 - 37.0 G/DL) 33.3 RDW (11.5 - 14.5 %) 14.5 Plt Count (130 - 400 /CUMM) 348 MPV (7.4 - 10.4 FL) 7.2 L Gran % (42.2 - 75.2 %) 88.1 H Lymphocytes % (20.5 - 51.1 %) 5.8 L Monocytes % (1.7 - 9.3 %) 5.6 Eosinophils % (0 - 5 %) 0.4 Basophils % (0.0 - 2.0 %) 0.1 Absolute Granulocytes (1.4 - 6.5 /CUMM) 17.7 H Absolute Lymphocytes (1.2 - 3.4 /CUMM) 1.2 Absolute Monocytes (0.10 - 0.60 /CUMM) 1.1 H Absolute Eosinophils (0.0 - 0.7 /CUMM) 0.1 Absolute Basophils (0.0 - 0.2 /CUMM) 0 Platelet Estimate (ADEQUATE) ADEQUATE Polychromasia 1+ Hypochromic-Microcytic 1+ Poikilocytosis 1+ Anisocytosis 2+ Microcytic Cells 1+ Macrocytic Cells 2+ Imaging/Other Studies: SERVICE DATE: 12/05/17-1210 EXAM TYPE: CAT - CT ABD & PELVIS W/O IV CONTRAS EXAMINATION: CT ABDOMEN AND PELVIS WITHOUT CONTRAST CLINICAL INFORMATION: Abdominal pain, constipation, dark stool. COMPARISON: CT abdomen and pelvis 12/01/2017 TECHNIQUE: Multidetector volumetric imaging was performed from the superior aspect of the liver through the pubic symphysis. Sagittal and coronal reformatted images were obtained on the technologist's workstation. DLP: 556 mGy-cm FINDINGS: LUNG BASES: 4 mm nodular opacity in the right lung base (3, 33/736). LIVER, GALLBLADDER, AND BILIARY TREE: The liver is normal in size, shape, and attenuation. No focal hepatic lesion or biliary ductal dilatation is present. The gallbladder is unremarkable with no evidence of radiopaque gallstones, gallbladder wall thickening, or obvious pericholecystic inflammatory changes. PANCREAS: There is persistent but improving stranding between the pancreatic head and the second/third portion of the duodenum. There is no pancreatic ductal dilatation. There are a few scattered small calcification within the pancreatic tail. SPLEEN: Unremarkable. ADRENAL GLANDS: Unremarkable. KIDNEYS AND URETERS: No hydronephrosis. Bilateral low-attenuation lesions in the kidneys likely represent cysts. There is bilateral nonspecific perinephric stranding. BLADDER: Streak artifact from the right hip prosthesis limits evaluation of the bladder. Again there is a suggestion of bladder wall thickening, particularly in the left lateral aspect of the bladder. GASTROINTESTINAL TRACT: There is no evidence of bowel obstruction. Mild persistent but improving stranding between the second third portions of the duodenum and the pancreatic head. ABDOMINAL WALL: No significant hernia is appreciated. LYMPH NODES: Normal. VASCULAR: Atherosclerotic calcification of the abdominal aorta and major branches. No aneurysmal dilatation. PELVIC VISCERA: There are brachytherapy seeds in the prostate. OSSEOUS STRUCTURES: No destructive bony lesions. Grade 1 anterolisthesis of L4 on L5. Status post right total hip arthroplasty. IMPRESSION: Persistent but improving stranding between the pancreatic head and second and third portions of the duodenum. Correlation with amylase and lipase values recommended. Findings may represent mild pancreatitis versus duodenitis. No organized fluid collection is present. No evidence of bowel obstruction. Once again, the latter is obscured by the right hip prosthesis however there again appears to be a suggestion of bladder wall thickening. Recommend further evaluation with urinalysis and if clinically indicated with ultrasound to assess for wall thickening or a focal bladder mass. Assessment/Plan Assessment/Recommendations: Assessment: Mr. Cheeny is an 82 year old male with multiple medical problems who had a recent hospitalization for PNA and dehydration during which time he had a ct scan for abdominal pain that showed duodenitis who presents now with black stool and a marked fall in his hgb likely secondary to a bleeding duodenal ulcer. His risk factors for PUD include recent steroid use, and continued ASA use for cardiac prophylaxis without any significant GI prophylaxis which was recommended on his last hospitalization, but for unclear reasons was apparently never started. He is currently hemodynamically stable, apparently hasn't had a BM since Monday or after getting magnesium citrate at an ER visit and as his BUN is decreasing from when it was last checked at his ER visit a few days ago I suspect he has clinically stopped bleeding, but he should have an expedited upper endoscopy to evaluate the source of bleeding and to treat any high risk lesions (ie an ulcer with a vissible vessel). As his hgb is currently only 4.1 and he is stable would recommend that he be adequately transfused prior to doing this, but will do it sooner should he become hemodynamically stable in the interim time period. Recommendations: 1. Keep NPO. 2. IV protonix bolus followed by a protonix drip at 8mg/hr 3. Transfuse with PRBCs to maintain hgb > 7/8 (at least 3-4 units) during which time he should be monitored for signs of volume overload and lasix should be given as needed, but he doesn't have a prior history of CHF. 4. Hold NSAIDs for now. 5. Maintain 2 large bore IVs at all times. 6. Notify GI for hemodynamically significant GI bleeding. 7. Will plan for a diagnostic/therapeutic EGD later today after he has been adequately transfused, but will do sooner if hemodynamically significant Gi bleeding occurs in the interim time period. I will continue to follow this patient and make further recommendations based on his clinical course and the results of the endoscopy to be done later today. Problem List: 1. Anemia 2. GI bleed 3. Abdominal pain Copies To: Adria ZAMUDIO,Edward Pineda; Jeremy ZAMUDIO,Raj De Leon; Dhara ZAMUDIO,Joaquim Priest. Consult Acknowledgment - Thank you for your consult request.
--- NOTE | 2017-12-10 13:04 | Admission Certification ---
Admission Certification Certification Statement - As attending physician, I certify that at the time of - admission, based on clinical presentation, severity of - symptoms, need for further diagnostic testing and - therapeutic interventions, and risk of adverse outcomes - without in-hospital treatment, in my clinical assessment, - this patient requires an acute hospital stay for a minimum - of two nights or longer. I have also considered psychsocial - factors such as support system, advanced age, financial - issues, cognitive issues, and failed out-patient treatments, - past re-admission history, safety of patient, and lack of - compliance as applicable. Specific rationale supporting this admission is: The patient was admitted with acute blood loss anemia with a hemoglobin of 4, requiring multiple transfusions and endoscopy for GI bleed. He will be monitored in the critical care unit for severe upper GI bleeding.
--- NOTE | 2017-12-10 14:29 | Proc Note Endoscopy ---
Endoscopy Procedure Medical History: unchanged (see meditech consult) Mental Status: alert/oriented Heart/Lung Eval Prior to Sedation: within normal limits Candidate for Sedation? Yes Procedure Date: 12/10/17 Procedure Type: EGD w/biopsy Dry End Operator: Paolo Zuniga MD ASA Classification: III Indications: Melena, anemia. Instrument: diagnostic gastroscope Meds Received: MAC Patient's Tolerance: good Complications: none Extent Reached: second part of duodenum Procedure: After getting written informed consent the patient was placed in the left lateral decubitus position with pulse oximetry, cardiac monitoring, and supplemental oxygen given. A bite block was inserted and IV sedation was given until the desired effect was achieved. A high definition upper Olympus endoscope was then inserted into the mouth and advanced to the second portion of the duodenum with little difficulty. Retroflexed views and photodocumentation was obtained. Findings: Esophagus: The esophageal mucosa was grossly normal in appearance there was a normal-appearing Z line at 40 cm from the incisors. The hiatal narrowing was approximately 42 cm from the incisors accounting for a small 2 cm sliding hiatal hernia. Stomach: The antral mucosa was moderately erythematous with several prominent erosions and one small prepyloric clean-based ulcer less than 1 cm in size. There was no active bleeding appreciated within the stomach. Distention and peristalsis of the stomach appeared normal. Retroflexed views revealed a small hiatal hernia. Random biopsies were obtained from the antrum with cold biopsy forceps and were sent to pathology for further evaluation. Duodenum: Within the duodenal bulb was one prominent large cratered clean based ulcer approximately 2 cm in size without some blackish pigmentation, but no vissible vessel. There was some edema around the ulcer edge which was friable, but there was no active bleeding. There was another small clean-based ulcer in the bulb also with surrounding edema and friable mucosa. The duodenal sweep was normal. In the second portion of the duodenum there were another 2-3 small clean-based ulcers. None of the visualized ulcers had any visible vessels or treatable lesions and there was no active bleeding appreciated within the duodenum. Impression: 1. Prominent 2 cm clean based duodenal bulb ulcer without any high risk/ treatable lesions which is the likely the source of his recent melena and anemia. 2. 2-3 other small clean based ulcers in the duodenal bulb and second portion of the duodenum. 3. Prominent erosive gastritis with a small clean-based prepyloric ulcer status post random gastric biopsies. 4. Small 2 cm sliding hiatal hernia. 5. No active bleeding appreciated to the second portion of the duodenum. Recommendations: 1. Continue IV PPI drip throughout the day and then change to IV Protonix 40 mg twice daily tomorrow. 2. Follow CBCs every 8 hours and transfuse as needed to maintain his hemoglobin greater than 8. 3. Advance to a full liquid diet today and if no signs of active bleeding would advance further in the am. 4. Would hold all NSAIDs for now, but if he remains without significant bleeding would consider restarting his baby aspirin for cardiac prophylaxis if medically indicated in 72-96 hours. 5. He should follow-up the pathology results with me as an outpatient. 6. Continue ICU monitoring for now, but if he remains without overt bleeding and his hemoglobin responds appropriately to transfusion would give consideration to transfer him out of the ICU later today or in the a.m. 7. Notify GI for signs of hemodynamically significant overt GI bleeding. CC: Adria ZAMUDIO,Edward Pineda; Jeremy ZAMUDIO,Raj Jules MD,Joaquim Yu
[2017-12-10 16:00] VITALS: BP 114/66
[2017-12-10 19:32] LABS: ABSOLUTE BASOPHIL COUNT 0 /CUMM (0.0-0.2); ABSOLUTE EOSINOPHIL COUNT 0.1 /CUMM (0.0-0.7); ABSOLUTE GRANULOCYTE CT 11.7 /CUMM (1.4-6.5); ABSOLUTE LYMPH COUNT 1.2 /CUMM (1.2-3.4); ABSOLUTE MONOCYTE COUNT 0.8 /CUMM (0.10-0.60); BASOPHIL % 0.2 % (0.0-2.0); EOSINOPHIL % 0.9 % (0-5); GRANULOCYTE % 84.8 % (42.2-75.2); MEAN CORPUSCULAR HGB 30.2 PG (27.0-31.0); MEAN CORPUSCULAR HGB CONC 33.6 G/DL (33.0-37.0); MEAN CORPUSCULAR VOLUME 89.9 FL (80.0-94.0); MEAN PLATELET VOLUME 7.9 FL (7.4-10.4); PLATELET COUNT 254 /CUMM (130-400); RBC DISTRIBUTION WIDTH 13.8 % (11.5-14.5); WHITE BLOOD CELL COUNT 13.8 /CUMM (4.8-10.8)
[2017-12-10 19:37] LABS: HEMATOCRIT 22.9 % (42-52); RED BLOOD CELL CT 2.55 /CUMM (4.70-6.10)
[2017-12-11] VITALS: BP 113/60
[2017-12-11 01:21] LABS: ABSOLUTE BASOPHIL COUNT 0 /CUMM (0.0-0.2); ABSOLUTE EOSINOPHIL COUNT 0.1 /CUMM (0.0-0.7); ABSOLUTE GRANULOCYTE CT 9.7 /CUMM (1.4-6.5); ABSOLUTE LYMPH COUNT 1.6 /CUMM (1.2-3.4); BASOPHIL % 0.3 % (0.0-2.0); EOSINOPHIL % 0.9 % (0-5); GRANULOCYTE % 78.2 % (42.2-75.2); HEMATOCRIT 22.1 % (42-52); MEAN CORPUSCULAR HGB 30.3 PG (27.0-31.0); MEAN CORPUSCULAR VOLUME 89.1 FL (80.0-94.0); MEAN PLATELET VOLUME 7.8 FL (7.4-10.4); PLATELET COUNT 249 /CUMM (130-400); RBC DISTRIBUTION WIDTH 13.7 % (11.5-14.5); RED BLOOD CELL CT 2.48 /CUMM (4.70-6.10); WHITE BLOOD CELL COUNT 12.4 /CUMM (4.8-10.8)
--- NOTE | 2017-12-11 07:52 | PN- Resident CRCU ---
Subjective HPI/CRCU Issues: Acute blood loss anemia 24 Hour Events: No issues overnight. Seen and examined patient this morning. Offers no complaints. Denies any abdominal pain, BRBPR. Objective Vital Signs & I&O Last 8 Hrs of Vitals and I&O: Intake & Output 12/11 1600 12/11 0800 12/11 0000 Intake Total 991 1184 Output Total 1300 1175 Balance -309 9 Intake, Blood 350 Product Intake, IV 241 224 Intake, Oral 400 960 Number 0 Bowel Movements Output, Urine 1300 1175 Laboratory Tests 12/11 12/11 0645 0040 Chemistry Sodium (137 - 145 mmol/L) 137 Potassium (3.5 - 5.1 mmol/L) 4.5 Chloride (98 - 107 mmol/L) 108 H Carbon Dioxide (22 - 30 mmol/L) 24 Anion Gap (5 - 16) 5 BUN (9 - 20 mg/dL) 32 H Creatinine (0.7 - 1.2 mg/dL) 1.9 H Estimated GFR (>60 ml/min) 34 L Glucose (65 - 99 mg/dL) 120 H Calcium (8.4 - 10.2 mg/dL) 8.1 L Phosphorus (2.5 - 4.5 mg/dL) 3.1 Magnesium (1.6 - 2.3 mg/dL) 2.0 Total Bilirubin (0.2 - 1.3 mg/dL) 0.7 AST (17 - 59 U/L) 15 L ALT (21 - 72 U/L) 25 Albumin (3.5 - 5.0 g/dL) 2.7 L Hematology CBC w Diff NO MAN DIFF REQ NO MAN DIFF REQ WBC (4.8 - 10.8 /CUMM) 10.9 H 12.4 H RBC (4.70 - 6.10 /CUMM) 3.09 L 2.48 L Hgb (14.0 - 18.0 G/DL) 9.6 L 7.5 L Hct (42 - 52 %) 27.7 L 22.1 L MCV (80.0 - 94.0 FL) 89.5 89.1 MCH (27.0 - 31.0 PG) 31.0 30.3 MCHC (33.0 - 37.0 G/DL) 34.7 34.0 RDW (11.5 - 14.5 %) 13.6 13.7 Plt Count (130 - 400 /CUMM) 240 249 MPV (7.4 - 10.4 FL) 7.8 7.8 Gran % (42.2 - 75.2 %) 78.0 H 78.2 H Lymphocytes % (20.5 - 51.1 %) 13.1 L 12.8 L Monocytes % (1.7 - 9.3 %) 7.2 7.8 Eosinophils % (0 - 5 %) 1.2 0.9 Basophils % (0.0 - 2.0 %) 0.5 0.3 Absolute Granulocytes (1.4 - 6.5 /CUMM) 8.5 H 9.7 H Absolute Lymphocytes (1.2 - 3.4 /CUMM) 1.4 1.6 Absolute Monocytes (0.10 - 0.60 /CUMM) 0.8 H 1.0 H Absolute Eosinophils (0.0 - 0.7 /CUMM) 0.1 0.1 Absolute Basophils (0.0 - 0.2 /CUMM) 0.1 0 12/10 12/10 1740 1329 Chemistry Troponin I (<0.11 ng/ml) < 0.01 Hematology CBC w Diff MAN DIFF ORDERED WBC (4.8 - 10.8 /CUMM) 13.8 H RBC (4.70 - 6.10 /CUMM) 2.55 L Hgb (14.0 - 18.0 G/DL) 7.7 L Hct (42 - 52 %) 22.9 L MCV (80.0 - 94.0 FL) 89.9 MCH (27.0 - 31.0 PG) 30.2 MCHC (33.0 - 37.0 G/DL) 33.6 RDW (11.5 - 14.5 %) 13.8 Plt Count (130 - 400 /CUMM) 254 MPV (7.4 - 10.4 FL) 7.9 Gran % (42.2 - 75.2 %) 84.8 H Lymphocytes % (20.5 - 51.1 %) 8.5 L Monocytes % (1.7 - 9.3 %) 5.6 Eosinophils % (0 - 5 %) 0.9 Basophils % (0.0 - 2.0 %) 0.2 Absolute Granulocytes (1.4 - 6.5 /CUMM) 11.7 H Absolute Lymphocytes (1.2 - 3.4 /CUMM) 1.2 Absolute Monocytes (0.10 - 0.60 /CUMM) 0.8 H Absolute Eosinophils (0.0 - 0.7 /CUMM) 0.1 Absolute Basophils (0.0 - 0.2 /CUMM) 0 Platelet Estimate (ADEQUATE) VERIFIED BY SMEAR Polychromasia 1+ Basophilic Stippling 1+ Microbiology Date/Time Procedure - Status Source Growth 12/10 1214 Surveillance Culture - RECD UPPER RESP 12/10 121 Surveillance Culture - RECD GI Vital Signs Date Time Temp Pulse Resp B/P B/P Pulse O2 O2 Flow FiO2 Mean Ox Delivery Rate 12/11 0400 97 Room Air 12/11 0000 98.0 70 16 113/60 98 Room Air 12/11 0000 98 Room Air 12/10 2150 Room Air 12/10 2000 97 Room Air 12/10 1600 99.0 90 16 114/66 99 Room Air 12/10 1400 99 Room Air 12/10 1120 98.3 88 18 107/57 99 Room Air 12/10 1020 89 20 95/50 97 Room Air Intake & Output 12/11 1600 12/11 0800 12/11 0000 Intake Total 991 1184 Output Total 1300 1175 Balance -309 9 Intake, Blood 350 Product Intake, IV 241 224 Intake, Oral 400 960 Number 0 Bowel Movements Output, Urine 1300 1175 Exam General Appearance: alert, awake, comfortable Respiratory: normal breath sounds Cardiovascular: regular rate/rhythm Gastrointestinal: normal bowel sounds, soft, non-tender Extremities: no edema Current Medications: Current Medications Sig/Angel Start time Last Medication Dose Route Stop Time Status Admin Acetaminophen 1,000 MG Q6 PRN 12/10 1015 AC IV Chlorhexidine 0 .STK-MED ONE 12/10 1454 DC Gluconate TOP Levothyroxine Sodium 0.1 MG DAILY AC 12/11 0700 AC 12/11 PO 0638 Pantoprazole Sodium 40 MG BID 12/11 0931 UNVr IV Pantoprazole Sodium 0 .STK-MED ONE 12/10 1117 DC IV Pantoprazole Sodium 40 MG Q5H 12/10 1030 DC 12/11 Sodium Chloride 100 ML IV 0638 Impression/Plan Impression/Problem List Impression: 82 year old gentleman with PMH significant for Prostate and thyroid ca, HTN, hyperlipidemia, CRI, PNA and DJD, admitted for severe fatique found to have hgb of 4.1 secondary to PUD. He underwent an EGD 12/16/17 which showed several ulcers in the duodenum and one pre-pyloric ulcer as well as erosive gastritis, but no active bleeding. Prob list: Symptomatic acute blood loss anemia due to Duoedenitis Chronic kidney disease stage IIIb with creatinine at baseline 2.2 Hypertension/hyperlipidemia Prostate cancer history with recent cystitis with abnormal ct needs urology follow up Thyroid cancer status post excision on Synthroid COPD/emphysema Neurogenic bladder with self-catheterization no urinary symptoms Plan: Ok per GI to advance diet to regular diet today will switch IV PPI to Po Avoid NSAIDs, discuss with his cardiology when to restart his ASA (From GI's stand point but if remains without active bleeding it can be restarted in 72- 96hrs) Per GI Follow CBC q12hrs and would transfuse as needed to maintain his hgb > 7 Notify GI for signs of overt GI bleeding. Ok to transfer the patient to general medical floor DVT PPx ALPs full code Problem List: 1. GI bleed 2. s/p prostate cancer 3. UTI (urinary tract infection) Pain Ratin Tomorrow's Labs & Rationales: cbc/BEP Plan DVT/Prophylaxis: mechanical
--- NOTE | 2017-12-11 07:52 | PN- Gastroenterology ---
Assessment/Plan GI Assessment/Recommendations: Assessment: Mr. Cheney is an 82 year old male admitted yersterday with a hgb of 4.1 secondary to PUD. He underwent an EGD yesterday which showed several ulcers in the duodenum and one pre-pyloric ulcer as well as erosive gastritis, but no active bleeding. There was pigmented material in the largest ulcer in the duodenum, which was likely the etiology of the melena he had reported last week, but there were no treatable lesions (ie. a vissible vessel). He has remained without any evidence of active bleeding and he is without any melena and his hgb has improved with transfusion. The etiology of his PUD is likely secondary to a combination of ASA and the steroids he was taking, but an antral biopsy for h. pylori was taken on the egd to rule this out. Recommendations: 1. Advance diet as tolerated. 2. Follow CBC q12hrs and would transfuse as needed to maintain his hgb > 7 or as per cardiology recommendations. 3. Would start oral supplemental iron 4. Ok to transfer the patient to general medical floor for continued observation. 5. Continue IV protonix, but would change to 40 mg BID once he is transfered and if he remains without evidence of overt GI bleeding would change him to an oral ppi BID for 4 weeks and then daily dosing. 6. 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 7. Notify GI for signs of overt GI bleeding. 8. If his diet is able to be advanced and he remains without overt GI bleeding would consider d/c home on an oral PPI in 24-48hrs. I will sign off at this time and ask that GI be recontacted for any recurrent bleeding or any other GI issues which may arise on this hospitalization prior to discharge. Otherwise he can follow up with Dr. Clark as scheduled for next week. Problem List: 1. Abdominal pain 2. Anemia 3. GI bleed Subjective Subjective: s/p EGD with several non-bleeding ulcers appreciated. s/p transfusion with 4 untis of PRBCs. pt feels better today with improvement in his weakness and lightheadedness. he is without any abdominal pain and has only been passing gas without any blood, melena or stool. he is tolerating a liquid diet without vomiting. Objective Vital Signs and I&Os Vital Signs Date Time Temp Pulse Resp B/P B/P Pulse O2 O2 Flow FiO2 Mean Ox Delivery Rate 12/11 0000 98.0 70 16 113/60 98 Room Air 12/11 0000 98 Room Air 12/10 2150 Room Air 12/10 2000 97 Room Air 12/10 1600 99.0 90 16 114/66 99 Room Air 12/10 1400 99 Room Air 12/10 1120 98.3 88 18 107/57 99 Room Air 12/10 1020 89 20 95/50 97 Room Air 12/10 0920 97.5 92 18 98/53 97 Room Air 12/10 0856 97.2 93 18 127/54 96 Room Air 12/10 0855 96 Room Air 12/10 0840 97.3 74 22 112/76 95 Room Air Intake & Output 12/11 1600 12/11 0400 12/10 1600 12/10 0400 12/09 1600 12/09 0400 Intake Total 1184 0 Output Total 1175 Balance 9 0 Intake, IV 224 Intake, Oral 960 0 Number 0 Bowel Movements Output, Urine 1175 Patient 169 lb Weight Weight Reported by Patient Measurement Method Physical Exam General Appearance: well developed/nourished, no apparent distress, alert, comfortable Head: atraumatic, normal appearance Neck: normal inspection, supple Respiratory: normal breath sounds, chest non-tender, no respiratory distress Cardiovascular: regular rate/rhythm Abdomen: normal bowel sounds, soft, non-tender, no organomegaly Rectal: deferred Back: normal inspection Extremities: no edema Neurologic/Psychiatric: no motor/sensory deficits, awake, alert, oriented x 3 Current Medications: Current Medications Sig/Angel Start time Last Medication Dose Route Stop Time Status Admin Acetaminophen 1,000 MG Q6 PRN 12/10 1015 AC IV Chlorhexidine 0 .STK-MED ONE 12/10 1454 DC Gluconate TOP Levothyroxine Sodium 0.1 MG DAILY AC 12/11 0700 AC 12/11 PO 0638 Pantoprazole Sodium 0 .STK-MED ONE 12/10 1117 DC IV Pantoprazole Sodium 40 MG Q5H 12/10 1030 AC 12/11 Sodium Chloride 100 ML IV 0638 Pantoprazole Sodium 80 MG ONCE ONE 12/10 0900 DC 12/10 IV 12/10 0901 0855 Pantoprazole Sodium 0 .STK-MED ONE 12/10 0854 DC IV Results Pertinent Lab Results: Laboratory Tests 12/11 12/11 0645 0040 Chemistry Sodium Pending Potassium Pending Chloride Pending Carbon Dioxide Pending Anion Gap Pending BUN Pending Creatinine Pending Glucose Pending Calcium Pending Phosphorus Pending Magnesium Pending Total Bilirubin Pending AST Pending ALT Pending Albumin Pending Hematology CBC w Diff Pending NO MAN DIFF REQ WBC (4.8 - 10.8 /CUMM) Pending 12.4 H RBC (4.70 - 6.10 /CUMM) Pending 2.48 L Hgb (14.0 - 18.0 G/DL) Pending 7.5 L Hct (42 - 52 %) Pending 22.1 L MCV (80.0 - 94.0 FL) Pending 89.1 MCH (27.0 - 31.0 PG) Pending 30.3 MCHC (33.0 - 37.0 G/DL) Pending 34.0 RDW (11.5 - 14.5 %) Pending 13.7 Plt Count (130 - 400 /CUMM) Pending 249 MPV (7.4 - 10.4 FL) Pending 7.8 Gran % (42.2 - 75.2 %) 78.2 H Lymphocytes % (20.5 - 51.1 %) 12.8 L Monocytes % (1.7 - 9.3 %) 7.8 Eosinophils % (0 - 5 %) 0.9 Basophils % (0.0 - 2.0 %) 0.3 Absolute Granulocytes (1.4 - 6.5 /CUMM) 9.7 H Absolute Lymphocytes (1.2 - 3.4 /CUMM) 1.6 Absolute Monocytes (0.10 - 0.60 /CUMM) 1.0 H Absolute Eosinophils (0.0 - 0.7 /CUMM) 0.1 Absolute Basophils (0.0 - 0.2 /CUMM) 0 12/10 12/10 9973 1329 Chemistry Troponin I (<0.11 ng/ml) < 0.01 Hematology CBC w Diff MAN DIFF ORDERED WBC (4.8 - 10.8 /CUMM) 13.8 H RBC (4.70 - 6.10 /CUMM) 2.55 L Hgb (14.0 - 18.0 G/DL) 7.7 L Hct (42 - 52 %) 22.9 L MCV (80.0 - 94.0 FL) 89.9 MCH (27.0 - 31.0 PG) 30.2 MCHC (33.0 - 37.0 G/DL) 33.6 RDW (11.5 - 14.5 %) 13.8 Plt Count (130 - 400 /CUMM) 254 MPV (7.4 - 10.4 FL) 7.9 Gran % (42.2 - 75.2 %) 84.8 H Lymphocytes % (20.5 - 51.1 %) 8.5 L Monocytes % (1.7 - 9.3 %) 5.6 Eosinophils % (0 - 5 %) 0.9 Basophils % (0.0 - 2.0 %) 0.2 Absolute Granulocytes (1.4 - 6.5 /CUMM) 11.7 H Absolute Lymphocytes (1.2 - 3.4 /CUMM) 1.2 Absolute Monocytes (0.10 - 0.60 /CUMM) 0.8 H Absolute Eosinophils (0.0 - 0.7 /CUMM) 0.1 Absolute Basophils (0.0 - 0.2 /CUMM) 0 Platelet Estimate (ADEQUATE) VERIFIED BY SMEAR Polychromasia 1+ Basophilic Stippling 1+ 12/10 0845 Urines Urinalysis LIGHT H Urine Color (YEL,AMB,STR) YEL Urine Clarity (CLEAR) HAZY H Urine pH (5.0 - 8.0) 6.0 Ur Specific [place] (1.001 - 1.035) <= 1.005 Urine Protein (NEG,<30 MG/DL) NEG Urine Ketones (NEG) NEG Urine Nitrite (NEG) NEG Urine Bilirubin (NEG) NEG Urine Urobilinogen (0.1 - 1.0 EU/dl) 0.2 Ur Leukocyte Esterase (NEG) NEG Ur Microscopic SEDIMENT EXAMINED Urine RBC (0 - 5 /HPF) RARE Urine WBC (0 - 2 /HPF) RARE Ur Epithelial Cells (NONE,FEW) RARE Urine Bacteria (NEG/NONE) FEW H Urine Hemoglobin (NEG) MOD H Urine Glucose (N MG/DL) NEG 12/10 0652 Chemistry Sodium (137 - 145 mmol/L) 134 L Potassium (3.5 - 5.1 mmol/L) 4.8 Chloride (98 - 107 mmol/L) 106 Carbon Dioxide (22 - 30 mmol/L) 22 Anion Gap (5 - 16) 7 BUN (9 - 20 mg/dL) 49 H Creatinine (0.7 - 1.2 mg/dL) 2.2 H Estimated GFR (>60 ml/min) 29 L BUN/Creatinine Ratio (7 - 25 %) 22.3 Glucose (65 - 99 mg/dL) 212 H Calcium (8.4 - 10.2 mg/dL) 7.9 L Magnesium (1.6 - 2.3 mg/dL) 2.2 Total Bilirubin (0.2 - 1.3 mg/dL) 0.2 AST (17 - 59 U/L) 12 L ALT (21 - 72 U/L) 21 Alkaline Phosphatase (< 127 U/L) 40 Troponin I (<0.11 ng/ml) < 0.01 Total Protein (6.3 - 8.2 g/dL) 5.1 L Albumin (3.5 - 5.0 g/dL) 2.8 L Globulin (1.9 - 4.2 gm/dL) 2.3 Albumin/Globulin Ratio (1.1 - 2.2 %) 1.2 Amylase (30 - 110 U/L) 114 H Lipase (23 - 300 U/L) 497 H Free T4 (0.85 - 1.93 ng/dL) 0.88 Total T3 (0.97 - 1.69 ng/mL) 0.50 L TSH &T3 &Free T4 Intrp (0.27 - 4.20 uIU/mL) 11.800 H Coagulation PT (9.4 - 12.5 SEC) 11.2 INR (0.90 - 1.17) 1.03 APTT (25 - 37 SEC) 24 L Hematology CBC w Diff MAN DIFF ORDERED WBC (4.8 - 10.8 /CUMM) 20.1 H RBC (4.70 - 6.10 /CUMM) 1.34 L Hgb (14.0 - 18.0 G/DL) 4.1 *L Hct (42 - 52 %) 12.2 *L MCV (80.0 - 94.0 FL) 91.0 MCH (27.0 - 31.0 PG) 30.3 MCHC (33.0 - 37.0 G/DL) 33.3 RDW (11.5 - 14.5 %) 14.5 Plt Count (130 - 400 /CUMM) 348 MPV (7.4 - 10.4 FL) 7.2 L Gran % (42.2 - 75.2 %) 88.1 H Lymphocytes % (20.5 - 51.1 %) 5.8 L Monocytes % (1.7 - 9.3 %) 5.6 Eosinophils % (0 - 5 %) 0.4 Basophils % (0.0 - 2.0 %) 0.1 Absolute Granulocytes (1.4 - 6.5 /CUMM) 17.7 H Absolute Lymphocytes (1.2 - 3.4 /CUMM) 1.2 Absolute Monocytes (0.10 - 0.60 /CUMM) 1.1 H Absolute Eosinophils (0.0 - 0.7 /CUMM) 0.1 Absolute Basophils (0.0 - 0.2 /CUMM) 0 Platelet Estimate (ADEQUATE) ADEQUATE Polychromasia 1+ Hypochromic-Microcytic 1+ Poikilocytosis 1+ Anisocytosis 2+ Microcytic Cells 1+ Macrocytic Cells 2+
[2017-12-11 08:00] VITALS: BP 142/59
[2017-12-11 08:07] LABS: ABSOLUTE BASOPHIL COUNT 0.1 /CUMM (0.0-0.2); ABSOLUTE EOSINOPHIL COUNT 0.1 /CUMM (0.0-0.7); ABSOLUTE GRANULOCYTE CT 8.5 /CUMM (1.4-6.5); ABSOLUTE LYMPH COUNT 1.4 /CUMM (1.2-3.4); ABSOLUTE MONOCYTE COUNT 0.8 /CUMM (0.10-0.60); BASOPHIL % 0.5 % (0.0-2.0); EOSINOPHIL % 1.2 % (0-5); MEAN CORPUSCULAR HGB CONC 34.7 G/DL (33.0-37.0); MEAN CORPUSCULAR VOLUME 89.5 FL (80.0-94.0); MEAN PLATELET VOLUME 7.8 FL (7.4-10.4); PLATELET COUNT 240 /CUMM (130-400); RBC DISTRIBUTION WIDTH 13.6 % (11.5-14.5); RED BLOOD CELL CT 3.09 /CUMM (4.70-6.10); WHITE BLOOD CELL COUNT 10.9 /CUMM (4.8-10.8)
[2017-12-11 08:47] LABS: HEMATOCRIT 27.7 % (42-52)
--- NOTE | 2017-12-11 09:39 | PN- Pulmonary ---
Subjective HPI/Critical Care Issues: Mr. Cheney is an 82 year old male admitted yersterday with a hgb of 4.1 secondary to PUD. He underwent an EGD yesterday which showed several ulcers in the duodenum and one pre-pyloric ulcer as well as erosive gastritis, but no active bleeding. There was pigmented material in the largest ulcer in the duodenum, which was likely the etiology of the melena he had reported last week, but there were no treatable lesions (ie. a vissible vessel). He has remained without any evidence of active bleeding and he is without any melena and his hgb has improved with transfusion. The etiology of his PUD is likely secondary to a combination of ASA and the steroids he was taking, but an antral biopsy for h. pylori was taken on the egd to rule this out. s/p transfusion of 4 units Eating Objective Current Medications: Current Medications Sig/Angel Start time Last Medication Dose Route Stop Time Status Admin Acetaminophen 1,000 MG Q6 PRN 12/10 1015 AC IV Chlorhexidine 0 .STK-MED ONE 12/10 1454 DC Gluconate TOP Levothyroxine Sodium 0.1 MG DAILY AC 12/11 0700 AC 12/11 PO 0638 Pantoprazole Sodium 40 MG BID 12/11 0931 UNVr IV Pantoprazole Sodium 0 .STK-MED ONE 12/10 1117 DC IV Pantoprazole Sodium 40 MG Q5H 12/10 1030 DC 12/11 Sodium Chloride 100 ML IV 0638 Vital Signs & I&O Last 24 Hrs of Vitals and I&O: Vital Signs Date Time Temp Pulse Resp B/P B/P Pulse O2 O2 Flow FiO2 Mean Ox Delivery Rate 12/11 0400 97 Room Air 12/11 0000 98.0 70 16 113/60 98 Room Air 12/11 0000 98 Room Air 12/10 2150 Room Air 12/10 2000 97 Room Air 12/10 1600 99.0 90 16 114/66 99 Room Air 12/10 1400 99 Room Air 12/10 1120 98.3 88 18 107/57 99 Room Air 12/10 1020 89 20 95/50 97 Room Air Intake & Output 12/11 1600 12/11 0800 12/11 0000 Intake Total 991 1184 Output Total 1300 1175 Balance -309 9 Intake, Blood 350 Product Intake, IV 241 224 Intake, Oral 400 960 Number 0 Bowel Movements Output, Urine 1300 1175 Impression/Plan Impression/Plan Impression/Plan: General Appearance Alert, Oriented X3, Cooperative, No Acute Distress Skin No Rashes, No Breakdown, No Significant Lesion Skin Temp/Moisture Exam: Warm/Dry HEENT Atraumatic, PERRLA, EOMI, Mucous Membr. moist/pink Neck Supple, No JVD Lymphatic No cervical lymphadenopathy Cardiovascular Regular Rate, Normal S1, Normal S2, No Murmurs Lungs Clear to Auscultation, Normal Air Movement Abdomen Normal Bowel Sounds, Soft, No Tenderness Neurological Normal Speech, Strength at 5/5 X4 Ext, Normal Tone, Sensation Intact Extremities No Clubbing, No Cyanosis, No Edema, Normal Pulses IMPRESSION Pt with multiple issues with sig UGI bleed with Du ulcer, s/p 4 units of prbc with multiple issues with #Symptomatic acute blood loss anemia due to Duoedenitis improved #Chronic anemia due to chronic kidney disease #Hypertension, hyperlipidemia, prediabetes #CKD stage IIIb with creatinine at baseline 2.2 #Prostate cancer history with recent cystitis with abnormal ct needs urology follow up #H/o Thyroid cancer status post excision on Synthroid #COPD/emphysema #Neurogenic bladder with self-catheterization no urinary symptoms Plan Ok to the floor cont to watch hgb Increase ambulation No asa, or nsaid for now Po iron IV ppi bid today and can change to po Cont out pt meds except asa and NSAID
[2017-12-11] MEDS ORDERED: OMEPRAZOLE40 M1 PO (11:01)
--- NOTE | 2017-12-11 13:10 | Patient Discharge Instructions ---
Discharge Instructions General Discharge Information You were seen/treated for: Duodenal ulcer You had these procedures: Endoscope Watch for these problems: Any dizziness, sudden fatigue, black stools, paleness, or any signs of acute blood loss please return to ER. Special Instructions: Stop taking aspirin, until instructed by physician. Stop taking NSAIDs, until instructed by physician. Follow up with PCP within one week. Follow up with GI specailist (Dr. Fischer) within one week. Acute Coronary Syndrome Inclusion Criteria At DC or during hospital stay patient has or had the following: ACS DIAGNOSIS No Discharge Core Measures Meds if any: Prescribed or Continued at Discharge Meds if any: NOT Prescribed or Continued at Discharge Congestive Heart Failure Inclusion Criteria At DC or during hospital stay patient has or had the following: CHF DIAGNOSIS No Discharge Core Measures Meds if any: Prescribed or Continued at Discharge Meds if any: NOT Prescribed or Continued at Discharge Cerebrovascular accident Inclusion Criteria At DC or during hospital stay patient has or had the following: CVA/TIA Diagnosis No Discharge Core Measures Meds if any: Prescribed or Continued at Discharge Meds if any: NOT Prescribed or Continued at Discharge Venous thromboembolism Inclusion Criteria VTE Diagnosis No VTE Type NONE VTE Confirmed by (Test) NONE Discharge Core Measures - Per Current guidelines, there needs to be overlap - treatment for the first 5 days of Warfarin therapy. - If discharged on Warfarin prior to 5 days of - overlap therapy, the patient will need to be - assessed for post discharge needs including - *Post discharge parental anticoagulation - *Warfarin and/or parental anticoagulation education - *Follow up date to check INR post discharge At least 5 days overlap therapy as Inpatient No Meds if any: Prescribed or Continued at Discharge Note: Overlap Therapy is Warfarin and Anticoagulant Meds if any: NOT Prescribed or Continued at Discharge
[2017-12-11 15:08] VITALS: BP 137/61
[2017-12-11 20:58] LABS: ABSOLUTE BASOPHIL COUNT 0 /CUMM (0.0-0.2); ABSOLUTE EOSINOPHIL COUNT 0.1 /CUMM (0.0-0.7); ABSOLUTE LYMPH COUNT 1.4 /CUMM (1.2-3.4); BASOPHIL % 0.4 % (0.0-2.0); EOSINOPHIL % 1.1 % (0-5); GRANULOCYTE % 77.8 % (42.2-75.2); HEMATOCRIT 26.1 % (42-52); MEAN CORPUSCULAR HGB 30.2 PG (27.0-31.0); MEAN CORPUSCULAR VOLUME 88.9 FL (80.0-94.0); MEAN PLATELET VOLUME 7.1 FL (7.4-10.4); PLATELET COUNT 270 /CUMM (130-400); RBC DISTRIBUTION WIDTH 13.7 % (11.5-14.5); RED BLOOD CELL CT 2.94 /CUMM (4.70-6.10); WHITE BLOOD CELL COUNT 11.6 /CUMM (4.8-10.8)
[2017-12-11 22:42] VITALS: BP 140/70
[2017-12-12 07:02] VITALS: BP 130/70
[2017-12-12] MEDS ORDERED: OMEPRAZOLE40 M1 PO ×2 (07:45→09:47)
[2017-12-12 08:20] LABS: ABSOLUTE BASOPHIL COUNT 0.1 /CUMM (0.0-0.2); ABSOLUTE EOSINOPHIL COUNT 0.2 /CUMM (0.0-0.7); ABSOLUTE GRANULOCYTE CT 7.8 /CUMM (1.4-6.5); ABSOLUTE LYMPH COUNT 1.5 /CUMM (1.2-3.4); ABSOLUTE MONOCYTE COUNT 1.1 /CUMM (0.10-0.60); BASOPHIL % 0.5 % (0.0-2.0); EOSINOPHIL % 2.2 % (0-5); GRANULOCYTE % 73.4 % (42.2-75.2); HEMATOCRIT 27.9 % (42-52); MEAN CORPUSCULAR HGB 30.8 PG (27.0-31.0); MEAN CORPUSCULAR HGB CONC 34.4 G/DL (33.0-37.0); MEAN CORPUSCULAR VOLUME 89.4 FL (80.0-94.0); MEAN PLATELET VOLUME 8.2 FL (7.4-10.4); PLATELET COUNT 270 /CUMM (130-400); RBC DISTRIBUTION WIDTH 13.8 % (11.5-14.5); RED BLOOD CELL CT 3.12 /CUMM (4.70-6.10); WHITE BLOOD CELL COUNT 10.6 /CUMM (4.8-10.8)
--- NOTE | 2017-12-12 09:16 | PN- Housestaff ---
Mao Knowles 12/12/17 0915: Subjective Follow-up For: Upper GI Bleed (Duodenal Ulcer) Subjective: Patient was seen and examined at bedside. Patient was very jovial. He denies any fever, chills, rash, chest pain, abdominal pain, or numbness in extremities. He denies any new complaints. He is feeling well overall. Review of Systems Constitutional: Denies: see HPI. Objective Last 24 Hrs of Vital Signs/I&O Vital Signs Date Time Temp Pulse Resp B/P B/P Pulse O2 O2 Flow FiO2 Mean Ox Delivery Rate 12/12 08 Room Air 12/12 0702 98.9 84 20 130/70 97 12/11 2242 98.4 88 20 140/70 96 Room Air Intake & Output 12/12 1600 12/12 0800 12/12 0000 Intake Total 480 480 Output Total 950 900 Balance -470 -420 Intake, Oral 480 480 Output, Urine 950 900 Physical Exam General Appearance: Alert, Oriented X3, Cooperative, No Acute Distress Skin: No Rashes, No Significant Lesion Skin Temp/Moisture Exam: Warm/Dry HEENT: Atraumatic, EOMI, Mucous Membr. moist/pink Neck: Supple, No JVD Cardiovascular: Regular Rate, Normal S1, Normal S2 Lungs: Clear to Auscultation, Normal Air Movement Abdomen: Normal Bowel Sounds, Soft, No Tenderness Neurological: Normal Speech, Sensation Intact Extremities: No Cyanosis Current Medications: Current Medications Sig/Angel Start time Last Medication Dose Route Stop Time Status Admin Acetaminophen 1,000 MG Q6 PRN 12/10 1015 DCD IV Levothyroxine Sodium 0.1 MG DAILY AC 12/11 07 DCD 12/12 PO 0621 Omeprazole 40 MG BID 12/12 09 DCD 12/12 PO 0816 Last 24 Hrs of Lab/Herbert Results Last 24 Hrs of Labs/Mics: Laboratory Tests 12/12/17 0640: Anion Gap 7, Estimated GFR 34 L, BUN/Creatinine Ratio 15.8, CBC w Diff NO MAN DIFF REQ, RBC 3.12 L, MCV 89.4, MCH 30.8, MCHC 34.4, RDW 13.8, MPV 8.2, Gran % 73.4, Lymphocytes % 14.0 L, Monocytes % 9.9 H, Eosinophils % 2.2, Basophils % 0.5, Absolute Granulocytes 7.8 H, Absolute Lymphocytes 1.5, Absolute Monocytes 1.1 H, Absolute Eosinophils 0.2, Absolute Basophils 0.1 Assessment/Plan Assessment: 82 yo M with PMH of prostate ca s/p TURP, neurogenic bladder (straight cath x 3 daily), thyroid ca, HTN, HLD, CKD Stage 3b (HTN Nephroscelrosis), and COPD (not on home oxygen); presenting this admission with significant upper GI bleed 2/2 duodenal ulcer (s/p EGD), melena, and Hb of 4, s/p blood transfusion with 4 units prbc. H/H now stable. Upper GI bleed seems to have healed, most likely due to chronic steroid and NSAID use. Problem list: #smyptomatic blood loss anemia due to duodenal ulce #COPD/Emphysema #CKD Stage 3b (baseline slitter helper 2.2) #Prostage Ca #Thyroid Ca s/p resection (on synthyroid) #Neurogenic bladder (self-cath x 3) #Hx of HTN #Hx of HLD Plan: - PT eval to go home - Hold NSAIDs and ASA - PO iron supplementation - IV PPI changed to PO - Cotinue Home meds DVT ppx Full Code Problem List: 1. GI bleed Pain Ratin Pain Location: n/a Pain Goal: Remain pain free Pain Plan: tylenol Tomorrow's Labs & Rationales: None Reinaldo Costello MD 12/12/172110: Attending MD Review Statement Attending Statement Attending Statement: examined this patient, discuss w/resident/PA/PRODUCT MARKETING DIRECTOR, agreed w/resident/PA/PRODUCT MARKETING DIRECTOR, reviewed EMR data (avail), discussed with nursing, discussed with case mgmt, amended to note Attending Assessment/Plan: The patient was seen and discussed with house staff. OK to discharge to home today on bid PPI as planned. Follow-up with PCP/GI.
== END 2017-12-12 11:16 | DRG 378 ==
LOC: ERH 06:10 → CRI 07:52 → ERHI 07:52 → 2NA 07:52 → ENRESERV 08:43 → ENTRNSPT 11:54 → EDTRNSPTSTS 11:59 → EDTRNSPT 11:59 → CRI 12:06 → CMPTRNSPT 12:20 → ENTRNSPT 12-11 10:21 → EDTRNSPT 12-11 10:31 → EDTRNSPTSTS 12-11 10:31 → 2NA 12-11 10:49 → CMPTRNSPT 12-11 10:50 → ENPENDDIS 12-12 09:33 → 2NA 12-12 10:23 → ENTRNSPT 12-12 11:08 → EDTRNSPT 12-12 11:13 → EDTRNSPTSTS 12-12 11:13 → 2NA 12-12 11:16 → CMPTRNSPT 12-12 11:42
PROVIDERS: Emergency Medicine; Internal Medicine; Student in an Organized Health Care Education/Training Program
PROC: 0DB68ZX Excision of Stomach, Via Natural or Artificial Opening Endoscopic, Diagnostic (ICD-10-PCS; 2017-12-10)
PROC: 30233N1 Transfusion of Nonautologous Red Blood Cells into Peripheral Vein, Percutaneous Approach (ICD-10-PCS; principal; 2017-12-11)
DX: K26.0 Acute duodenal ulcer with hemorrhage (principal); D62 Acute posthemorrhagic anemia; I12.9 Hypertensive chronic kidney disease with stage 1 through stage 4 chronic kidney disease, or unspecified chronic kidney disease; N18.3 Chronic kidney disease, stage 3 (moderate); K25.3 Acute gastric ulcer without hemorrhage or perforation; K29.70 Gastritis, unspecified, without bleeding; N31.9 Neuromuscular dysfunction of bladder, unspecified; Z85.46 Personal history of malignant neoplasm of prostate; Z90.79 Acquired absence of other genital organ(s); E78.5 Hyperlipidemia, unspecified; J44.9 Chronic obstructive pulmonary disease, unspecified; E89.0 Postprocedural hypothyroidism; M17.10 Unilateral primary osteoarthritis, unspecified knee
CPT/HCPCS: 2NASP; CCU; 36415; 36592; 71045; 81001; 82436; 86920; 87086; 93005; 93010; 96374; J0131; P9016